=== PATIENT | male | born 1935 | race Caucasian/White ===

== ENCOUNTER 2018-08-06 17:03 | Outpatient (CLI) | payer OTHER, MEDICARE | END 2018-08-06 17:04 | disposition critical access hospital (66) | LOC: EMS 17:03 | PROVIDERS: ATTEND Surgery | DX: M54.2 Cervicalgia (principal); V47.0XXA Car driver injured in collision with fixed or stationary object in nontraffic accident, initial encounter; Y92.481 Parking lot as the place of occurrence of the external cause | CPT/HCPCS: A0425; A0429 ==

== ENCOUNTER 2018-08-06 17:27 | Emergency (ER) | payer OTHER, MEDICARE ==
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
[2018-08-06] MEDS ORDERED: ACETAMINOPHEN 325 MG TABLET PO STA (17:49)
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
[2018-08-06 19:35] VITALS: BP 134/99
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
== END 2018-08-06 19:57 | disposition home or self-care (01) ==
LOC: EDUNIT# → ED 17:27
DX: S80.02XA Contusion of left knee, initial encounter (principal); S00.83XA Contusion of other part of head, initial encounter; V47.1XXA Car passenger injured in collision with fixed or stationary object in nontraffic accident, initial encounter; W22.12XA Striking against or struck by front passenger side automobile airbag, initial encounter; Y92.481 Parking lot as the place of occurrence of the external cause
CPT/HCPCS: 70450; 72125; 73562; 99283; 99285; A9270

== ENCOUNTER 2019-10-11 09:42 | Outpatient (CLI) | payer MEDICARE, OTHER ==
[2019-10-11 10:29] LABS: BILIRUBIN,URINE NEGATIVE (NEGATIVE); GLUCOSE, URINE (UA) NEGATIVE (NEGATIVE); KETONES,URINE (UA) NEGATIVE (NEGATIVE); LEUKOCYTE ESTERASE, URINE LARGE (NEGATIVE); NITRITE,URINE NEGATIVE (NEGATIVE); OCCULT BLOOD,URINE SMALL (NEGATIVE); PROTEIN,URINE TRACE mg/dL (NEGATIVE); UROBILINOGEN,URINE 0.2 (NORMAL) E.U./dL (NORMAL)
[2019-10-11 10:31] LABS: CLARITY,URINE CLOUDY (CLEAR)
[2019-10-11 10:56] LABS: SQUAMOUS EPITHELIAL CELL,UR FEW Squamous (<= Few); WBC CLUMPS,URINE PRESENT
[2019-10-11 10:57] LABS: AMORPHOUS SEDIMENT,UR Few /LPF; BACTERIA,URINE Few /HPF (None Seen)
== END 2019-10-11 09:43 | disposition home or self-care (01) ==
LOC: LAB 09:42
PROVIDERS: ATTEND Internal Medicine
DX: R35.0 Frequency of micturition (principal); R30.0 Dysuria
CPT/HCPCS: 81001

== ENCOUNTER 2019-11-06 11:01 | Emergency (ER) | payer MEDICARE, OTHER ==
--- NOTE | 2019-11-06 12:32 | ED Physician Documentation ---
PD HPI ABD PAIN - Stated complaint Stated Complaint: MALE - Chief complaint Chief Complaint: Abd Pain - History obtained from History obtained from: Patient - History of Present Illness Timing - onset: Other (Has not had a bowel movement in about 2 days, this is a recurrent issue for him. No abdominal pain or vomiting, just rectal pressure.) Review of Systems Constitutional: denies: Fever, Chills Cardiac: denies: Chest pain / pressure, Palpitations Respiratory: denies: Dyspnea, Cough PD PAST MEDICAL HISTORY - Past Medical History Past Medical History: Yes Cardiovascular: High cholesterol Respiratory: None Endocrine/Autoimmune: None GI: Chronic constipation : Benign prostate hypertrophy Musculoskeletal: None Derm: None - Past Surgical History Past Surgical History: Yes General: Appendectomy Ortho: Knee replacement, Other - Present Medications Home Medications: Ambulatory Orders Medication Instructions Recorded Confirmed Alfuzosin HCl [Uroxatral] 10 mg PO DAILY 07/28/15 11/06/19 Docusate Sodium 100Mg Capsule 100 mg PO BID #30 capsule 07/28/15 11/06/19 [Colace] Simvastatin 20 mg PO DAILY 08/06/18 11/06/19 - Allergies Allergies/Adverse Reactions: Allergies Allergy/AdvReac Type Severity Reaction Status Date / Time No Known Drug Allergies Allergy Verified 11/06/19 11:10 - Social History Does the pt smoke?: No Smoking Status: Former smoker Does the pt drink ETOH?: No Does the pt have substance abuse?: No - Immunizations Immunizations are current?: Yes - POLST Patient has POLST: No PD ED PE NORMAL - Vitals Vital signs reviewed: Yes - General General: Alert and oriented X 3, No acute distress - Abdomen Abdomen: Normal bowel sounds, Soft, Non tender - Rectal Rectal: Other (There is a large firm fecal impaction that was partially disimpacted during exam and then a enema was placed.) - Extremities Extremities: No edema, No calf tenderness / cord - Neuro Neuro: Alert and oriented X 3, Normal speech Results - Vitals Vitals: Vital Signs - 24 hr 11/06/19 11/06/19 11:07 11:29 Temperature 36.6 C 36.9 C Heart Rate 75 54 L Respiratory 17 16 Rate Blood Pressure 173/64 H 179/93 H O2 Saturation 96 98 Oxygen O2 Source Room air PD MEDICAL DECISION MAKING - ED course ED course: 84-year-old gentleman presents with symptomatic fecal impaction. Using a combination of several enemas and digital disimpaction we were able to clear it and he felt much better. Departure - Departure Disposition: 01 Home, Self Care Clinical Impression: Fecal impaction Condition: Good Record reviewed to determine appropriate education?: Yes Instructions: ED Impaction Fecal Treated Comments: Call your doctor to arrange a follow-up appointment, make the next available appointment. In the interim, return anytime if worse or if new symptoms develop. Your blood pressure was elevated today on check into the emergency department. This does not mean that you have hypertension, it is a common phenomenon to come to the emergency department and have elevated blood pressure. I recommend that you see your primary care physician within the week to have it rechecked when you are feeling better.
[2019-11-06] MEDS ORDERED: MAGNESIUM CITRATE 296 ML BOTTLE PO STA (13:34)
[2019-11-06 13:45] VITALS: BP 170/82
== END 2019-11-06 13:45 | disposition home or self-care (01) ==
LOC: ED 11:01
DX: K56.41 Fecal impaction (principal); R03.0 Elevated blood-pressure reading, without diagnosis of hypertension; Z87.891 Personal history of nicotine dependence
CPT/HCPCS: 99282; 99283; A9270

== ENCOUNTER 2020-06-17 15:21 | Outpatient (CLI) | payer MEDICARE, OTHER | END 2020-06-17 15:22 | disposition critical access hospital (66) | LOC: EMS 15:21 | PROVIDERS: ATTEND Surgery | DX: M54.9 Dorsalgia, unspecified (principal); W17.89XA Other fall from one level to another, initial encounter; Y92.009 Unspecified place in unspecified non-institutional (private) residence as the place of occurrence of the external cause | CPT/HCPCS: A0425; A0429 ==

== ENCOUNTER 2020-06-17 16:54 | Emergency (ER) | payer MEDICARE, OTHER ==
[2020-06-17] MEDS ORDERED: HYDROcod/ACETAM 5/325 MG TABLET PO STA ×2 (17:02→18:01)
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
--- NOTE | 2020-06-17 18:02 | CT Report ---
PROCEDURE: THORACIC SPINE WO INDICATIONS: back injury TECHNIQUE: Noncontrast 3 mm thick sections acquired through the region of interest in the thoracic spine. Sagit caryn and coronal reformats were then constructed. For radiation dose reduction, the following was used : automated exposure control, adjustment of mA and/or kV according to patient size. COMPARISON: None. FINDINGS: Image quality: Excellent. Bones: There is diffuse demineralization. Flowing, bridging anterior osteophytes are present through out the thoracic spine and there is partial ankylosis of the spinous processes posteriorly. There is an oblique coronal fracture through the T9 vertebral body involving superior and inferior en dplates but without retropulsion of any fragments posteriorly into the central canal. No significant vertebral body height loss. The flowing osteophyte between T9 and T10 is fractured. Questionable irre gularity of the right T9 pedicle. No visible displaced posterior element fracture. No other acute fractures. No suspicious sclerotic or lytic bony lesions. Central spinal canal is of normal overall caliber. Soft tissues: Very mild soft tissue thickening around the anterior aspect of the T9 and T10 vertebra l bodies. No paravertebral masses or hematomas. Moderate mitral annular and mild coronary artery jaison cification. Visualized posteromedial lungs demonstrate minor micronodularity throughout the right giuliano g posteriorly of uncertain etiology. No consolidation or effusion. IMPRESSION: 1. Oblique coronal T9 vertebral body fracture without definite involvement of the posterior column or definite involvement of posterior elements. 2. Morphology of diffuse idiopathic skeletal hypertrophy, less likely ankylosing spondylitis with fra cture of the bridging anterior osteophyte at the T9-10 level. 3. Micronodular pulmonary parenchymal pattern in the right lower lobe posteriorly. This may reflect a spiration pneumonitis or other infectious/inflammatory process. Reviewed by: Tabby Cannon MD on 06/17/2020 6:01 PM PDT Approved by: Tabby Cannon MD on 06/17/2020 6:01 PM PDT Station ID: [id number]
--- NOTE | 2020-06-17 18:13 | CT Report ---
PROCEDURE: LUMBAR SPINE WO INDICATIONS: back injury TECHNIQUE: Noncontrast 3 mm thick sections acquired from the T12 level to the sacrum. Sagittal and coronal refo rmats were constructed. For radiation dose reduction, the following was used: automated exposure co ntrol, adjustment of mA and/or kV according to patient size. COMPARISON: None. FINDINGS: Image quality: Excellent. Bones: There is normal bony alignment. No acute vertebral body compression fractures. No suspiciou s lytic or blastic bony lesions. There are laminectomy changes from the L2-3 through L4-5 levels. Ce ntral spinal caliber is of normal overall caliber. No pars defects. T12-L1: Mild disc height loss and disc osteophyte complex. Anterior spurring. L1-L2: Severe disc height loss, vacuum phenomenon, endplate sclerosis, subcortical cystic changes, and prominent spurring. Facet spurring. Severe central canal and bilateral foraminal stenosis. L2-L3: Moderately severe disc height loss. Circumferential disc osteophyte, facet arthropathy, and posterior disc bulge resulting in moderate to severe bilateral foraminal stenosis and central canal stenosis. L3-L4: Prominent circumferential disc osteophyte. Moderate facet arthropathy. Mild to moderate bila teral foraminal narrowing and central canal narrowing. L4-L5: Severe disc height loss, prominent circumferential endplate spurring, sclerosis, and subcort ical cystic change. Severe facet arthropathy. Severe left and moderate to severe right foraminal narr owing. . L5-S1: Moderate to severe disc degeneration with vacuum phenomenon. Moderate facet arthropathy. Fac et spurring and mild to moderate central canal narrowing bilaterally. Soft tissues: No retroperitoneal masses or hematomas. Mild, chronic appearing left hydronephrosis an d prominence of the extrarenal pelvis. Mild Hydroureter bilaterally. The distal ureters were not imag ed. Visualized aorta is normal in caliber. IMPRESSION: 1. No definite vertebral body fractures. 2. Decompressive laminectomy changes from L2-3 through L4-5. 3. Severe disc height loss and degenerative changes at multiple levels. 4. Mild bilateral hydroureter and mild left hydronephrosis. This may be physiologic if there is a dis tended urinary bladder or bladder outlet obstruction. Correlate clinically. Reviewed by: Tabby Cannon MD on 06/17/2020 6:12 PM PDT Approved by: Tabby Cannon MD on 06/17/2020 6:12 PM PDT Station ID: [id number]
[2020-06-17 19:01] VITALS: BP 177/73
== END 2020-06-17 19:35 | disposition home or self-care (01) ==
LOC: EDUNIT# → ED 16:54
DX: S22.078A Other fracture of T9-T10 vertebra, initial encounter for closed fracture (principal); W19.XXXA Unspecified fall, initial encounter
CPT/HCPCS: 12004; 72128; 72131; 99284; A9270

== ENCOUNTER 2021-12-13 14:53 | Emergency (ER) | payer MEDICARE, OTHER ==
[2021-12-13 15:04] VITALS: BP 126/51
--- NOTE | 2021-12-13 15:16 | ED Physician Documentation ---
History of Present Illness - Stated complaint Stated Complaint: MALE - Chief complaint Chief Complaint: Abd Pain - Additonal information Additional information: 86-year-old male who has a history of fairly advanced dementia presents to the emergency department for concerns that his Patel catheter is not functioning normally. A Patel was placed 2 days ago through urology at the [facility]. He is scheduled for a prostate surgery on the at [facility]. He is currently on finasteride. His and caregiver reports that over the last 24 hours the Patel itself has put out very little urine but his bedding and his diaper has been saturated with urine. There have been no fevers. No complaints of abdominal pain or discomfort with the Patel itself. Review of Systems Unable to obtain: Dementia, Other (History obtained from ) Constitutional: denies: Fever, Chills Eyes: reports: Reviewed and negative Cardiac: reports: Reviewed and negative Respiratory: reports: Reviewed and negative GI: reports: Abdominal Pain : reports: Unable to Void (Patel in place) Skin: reports: Reviewed and negative Musculoskeletal: reports: Reviewed and negative Neurologic: reports: Reviewed and negative Psychiatric: reports: Reviewed and negative PD PAST MEDICAL HISTORY - Past Medical History Cardiovascular: High cholesterol Respiratory: None Endocrine/Autoimmune: None GI: Chronic constipation : Benign prostate hypertrophy Musculoskeletal: None Derm: None - Past Surgical History Past Surgical History: Yes General: Appendectomy Ortho: Knee replacement, Other - Present Medications Home Medications: Ambulatory Orders Medication Instructions Recorded Confirmed Alfuzosin HCl [Uroxatral] 10 mg PO DAILY 07/28/15 11/06/19 Docusate Sodium 100Mg Capsule 100 mg PO BID #30 capsule 07/28/15 11/06/19 [Colace] Simvastatin 20 mg PO DAILY 08/06/18 11/06/19 Alfuzosin HCl [Alfuzosin HCl ER] 10 mg PO 11/11/19 Cholecalciferol (Vitamin D3) 2,000 unit PO 11/11/19 [Vitamin D3] Docusate Calcium 240 mg PO 11/11/19 Donepezil [Aricept] 5 mg PO DAILY 11/11/19 11/11/19 Propranolol [Inderal] 10 mg PO BID 11/11/19 11/11/19 Sertraline [Zoloft] 25 mg PO DAILY 02/07/20 02/07/20 Tamsulosin [Flomax] 0.4 mg PO ONCE 11/11/19 11/11/19 polyethylene glycoL 3350 [Miralax] 17 gm PO DAILY 11/11/19 11/11/19 Hydrocodone/Acetaminophen 1 - 2 tab PO Q6H PRN #15 tablet 06/17/20 [Hydrocodone-Acetamin 5-325 mg] - Allergies Allergies/Adverse Reactions: Allergies Allergy/AdvReac Type Severity Reaction Status Date / Time No Known Drug Allergies Allergy Verified 12/13/21 15:04 - Social History Does the pt smoke?: No Smoking Status: Never smoker Does the pt drink ETOH?: No Does the pt have substance abuse?: No - Immunizations Immunizations are current?: Yes - POLST Patient has POLST: No PD ED PE EXPANDED - General General: Alert, No acute distress, Well developed/nourished - Cardiac Cardiac: Regular Rate, Pedal strong equal, Cap refill < 2 sec. No: Murmur Present - Respiratory Respiratory: Clear to ausultation ailyn. No: Distress, Labored - Abdomen Abdomen: Normal Bowel sounds. No: Tender to palpation - Male Male : Other (Patel catheter seen exiting the penis. Urine is draining around the catheter. Patel bag with small amount of yellow urine with sediment in it.) - Neuro Neuro: CNII-XII intact, Other (Dementia at baseline but no acute focal neuro deficits.) - GCS Eye Opening: Spontaneous Motor: Obeys Commands Verbal: Confused Total: 14 Results - Vitals Vitals: Vital Signs - 24 hr 12/13/21 15:01 Temperature 36.7 C Heart Rate 72 Respiratory 18 Rate Blood Pressure 126/51 L O2 Saturation 98 Oxygen O2 Source Room air PD MEDICAL DECISION MAKING - ED course Complexity details: reviewed results, re-evaluated patient, d/w patient ED course: 86-year-old male presents emergency department for evaluation of Patel catheter malfunction. It was placed 2 days ago at the [facility] secondary to obstruction. He has a planned prostate operation on 20 December. reports that he is saturating his diaper and his bedding but very little is coming through the Patel. We did do a bladder scan here in the emergency department and found that there was only 50 mL of residual urine. The balloon was checked and noted to be fully inflated with 10 cc of saline. Patient has no abdominal discomfort elicited on exam. He does have a coud catheter in place. I did discuss this ED visit with his urologist Dr. Flores through the [facility]. He feels that we should reobtain the current catheter without exchange. He feels that bladder spasms are likely causing the Patel dysfunction. He would not recommend bladder spasm medication as he feels that it will interfere with her ability to properly operate on the prostate next week. Therefore this plan and finding was discussed with the patient and his given that the patient is not obstructed he will be discharged home. Emergent return precautions were discussed for fevers failure of any urine either in the diaper or Patel for 12 more hours or significant abdominal pain. Departure - Departure Disposition: Home, Self Care Clinical Impression: Patel catheter problem Qualifiers: Encounter type: initial encounter Qualified Code(s): T83.9XXA - Unspecified complication of genitourinary prosthetic device, implant and graft, initial encounter Condition: Stable Record reviewed to determine appropriate education?: Yes Follow-Up: AMY FLORES [Physician No Access] - Comments: Mo was seen today for failure of his Patel catheter adequately drained. We did check the residual volume of urine in his bladder and there was only 50 mL. We also checked the Patel itself and find that the balloon is intact. I did discuss his case with Dr. Flores his urologist. He suspects that bladder spasm are causing urine to be ejected around the catheter and this typically subsides over a few days. Continue to follow-up with urology at the [facility]. If you find that he is not having any urine output by any means either his diaper or the Patel for 12 or more hours, he develops fevers or has abdominal pain then please return immediately to the ER for a second evaluation.
== END 2021-12-13 16:35 | disposition home or self-care (01) ==
LOC: ED 14:53
DX: T83.9XXA Unspecified complication of genitourinary prosthetic device, implant and graft, initial encounter (principal); F03.90 Unspecified dementia, unspecified severity, without behavioral disturbance, psychotic disturbance, mood disturbance, and anxiety
CPT/HCPCS: 51798; 99281; 99282

== ENCOUNTER 2021-12-15 11:40 | Outpatient (CLI) | payer MEDICARE, OTHER | END 2021-12-15 11:41 | disposition critical access hospital (66) | LOC: EMS 11:40 | DX: M54.50 Low back pain, unspecified (principal); R50.9 Fever, unspecified; Z96.0 Presence of urogenital implants | CPT/HCPCS: A0425; A0429 ==

== ENCOUNTER 2021-12-15 12:09 | Emergency (ER) | payer MEDICARE, OTHER ==
--- NOTE | 2021-12-15 12:43 | ED Physician Documentation ---
PD HPI ABD PAIN - Stated complaint Stated Complaint: LOW BACK PX - Chief complaint Chief Complaint: Abd Pain - History obtained from History obtained from: Patient - History of Present Illness Timing - onset: How many days ago (few) Timing - duration: Days (few) Timing - details: Gradual onset, Still present, Waxing and waning Quality: Cramping, Aching, Pain (lower back midline) Location: Suprapubic Radiation: Lower back. No: Left flank, Right flank Improved by: No: Eating Worsened by: Moving. No: Eating Associated symptoms: Other (has alcantara catheter in recently changed and was concerned about it not working, seen 2 days ago here in ER and alcantara appeared to be draining. Considered bladder spasms. No meds changed. Has alcantara draining well since but low back pain now.). No: Fever, Nausea, Vomiting, Hematuria Recently seen: Clinic (had UA from 5 days ago in Urology clinic with alcantara placed and culture showing E.Coli without sensitivities yet reported on his MyChart results pulled up by his on her phone.), Emergency Dept Review of Systems Constitutional: denies: Fever, Chills Nose: denies: Rhinorrhea / runny nose, Congestion Throat: denies: Sore throat Respiratory: denies: Cough GI: reports: Abdominal Pain (bladder area), Constipation. denies: Nausea, Vomiting Neurologic: denies: Generalized weakness, Altered mental status PD PAST MEDICAL HISTORY - Past Medical History Cardiovascular: High cholesterol Respiratory: None Endocrine/Autoimmune: None GI: Chronic constipation : Benign prostate hypertrophy Musculoskeletal: None Derm: None - Past Surgical History Past Surgical History: Yes General: Appendectomy Ortho: Knee replacement, Other - Present Medications Home Medications: Ambulatory Orders Medication Instructions Recorded Confirmed Alfuzosin HCl [Uroxatral] 10 mg PO DAILY 07/28/15 11/06/19 Docusate Sodium 100Mg Capsule 100 mg PO BID #30 capsule 07/28/15 11/06/19 [Colace] Simvastatin 20 mg PO DAILY 08/06/18 11/06/19 Alfuzosin HCl [Alfuzosin HCl ER] 10 mg PO 11/11/19 Cholecalciferol (Vitamin D3) 2,000 unit PO 11/11/19 [Vitamin D3] Docusate Calcium 240 mg PO 11/11/19 Donepezil [Aricept] 5 mg PO DAILY 11/11/19 11/11/19 Propranolol [Inderal] 10 mg PO BID 11/11/19 11/11/19 Sertraline [Zoloft] 25 mg PO DAILY 11/11/19 11/11/19 Tamsulosin [Flomax] 0.4 mg PO ONCE 11/11/19 11/11/19 polyethylene glycoL 3350 [Miralax] 17 gm PO DAILY 11/11/19 11/11/19 Hydrocodone/Acetaminophen 1 - 2 tab PO Q6H PRN #15 tablet 06/17/20 [Hydrocodone-Acetamin 5-325 mg] Acetaminophen [Acetaminophen Extra 500 mg PO QID PRN #50 tablet 12/15/21 Strength] cephALEXin [Keflex] 500 mg PO QID 5 Days #20 cap 12/15/21 - Allergies Allergies/Adverse Reactions: Allergies Allergy/AdvReac Type Severity Reaction Status Date / Time No Known Drug Allergies Allergy Verified 12/15/21 12:18 - Social History Does the pt smoke?: No Smoking Status: Never smoker Does the pt drink ETOH?: No Does the pt have substance abuse?: No - Immunizations Immunizations are current?: Yes - POLST Patient has POLST: No PD ED PE NORMAL - Vitals Vital signs reviewed: Yes - General General: Alert and oriented X 3, No acute distress, Well developed/nourished - Cardiac Cardiac: RRR, No murmur - Respiratory Respiratory: No respiratory distress, Clear bilaterally - Abdomen Abdomen: Normal bowel sounds, Soft, Non distended, No organomegaly, Other (mild tender suprapubic without distension. Bladder scanner showing minimal residual, and alcantara bag is full. ) - Male Male : Other (alcantara in place. No infection/drainage at meatus. ) - Back Back: No CVA TTP, Other (tender lower lumbar midline area to percussion, not to palpation. ) - Derm Derm: Normal color, Warm and dry, No rash - Extremities Extremities: No edema, No calf tenderness / cord - Neuro Neuro: Alert and oriented X 3, No motor deficit, Normal speech Results - Vitals Vitals: Vital Signs - 24 hr 12/15/21 12/15/21 12/15/21 12:18 13:56 15:02 Temperature 37.6 C Heart Rate 72 63 60 Respiratory 16 18 18 Rate Blood Pressure 166/65 H 160/64 H 149/65 H O2 Saturation 98 97 97 Oxygen O2 Source Room air - Labs Labs: Laboratory Tests 12/15/21 12/15/21 12/15/21 13:15 13:15 14:10 WBC 15.3 H RBC 3.25 L Hgb 9.8 L Hct 29.2 L MCV 89.8 MCH 30.2 MCHC 33.6 RDW 13.2 Plt Count 257 MPV 8.6 Neut # (Auto) 11.6 H Lymph # (Auto) 1.0 L Eddy # (Auto) 2.7 H Eos # (Auto) 0.0 Baso # (Auto) 0.1 Absolute Nucleated RBC 0.00 Nucleated RBC % 0.0 Manual Slide Review Indicated WBC Morphology Platelet Estimate NORMAL (130-450,000) Platelet Morphology NORMAL APPEARANCE RBC Morph Micro Appear NORMAL APPEARANCE Sodium 132 L Potassium 3.8 Chloride 102 Carbon Dioxide 22 Anion Gap 8.0 BUN 23 H Creatinine 1.4 H Estimated GFR (MDRD) 48 L Glucose 151 H Calcium 8.6 Total Bilirubin 0.6 AST 20 ALT 16 Alkaline Phosphatase 52 Total Protein 6.1 L Albumin 3.6 Globulin 2.5 Albumin/Globulin Ratio 1.4 Lipase 24 Urine Color YELLOW Urine Clarity CLOUDY Urine pH 6.0 Ur Specific [place] 1.020 Urine Protein 30 H Urine Glucose (UA) NEGATIVE Urine Ketones NEGATIVE Urine Occult Blood LARGE H Urine Nitrite POSITIVE H Urine Bilirubin NEGATIVE Urine Urobilinogen 0.2 (NORMAL) Ur Leukocyte Esterase MODERATE H Urine RBC 11-25 H Urine WBC >25 H Ur Squamous Epith Cells MANY Squamous H Urine Bacteria Moderate H Ur Microscopic Review INDICATED Urine Culture Comments NOT INDICATED - Rads (name of study) lumbar CT Radiology: Prelim report reviewed, Discussed with rads (stranding both ureters and some hydroureter. COnsider bladder outflow issue. consider infection. ), See rad report PD MEDICAL DECISION MAKING - ED course Complexity details: reviewed results (lumbar CT showing stranding both ureters. could be c/w infection and UA does show infection. ), considered differential ( having recent discomfort with alcantara/spasms, and now some flank pain bilaterally. NO fever. Consider alcantara dysfunction, UTI, other process. Pain in spine area so also consider compression fx/etc. ), d/w patient, d/w family Departure - Departure Disposition: 01 Home, Self Care Clinical Impression: Alcantara catheter in place UTI (urinary tract infection) Qualifiers: Urinary tract infection type: catheter-associated UTI Indwelling urinary cathet er type: indwelling urethral catheter Encounter type: initial encounter Qualified Code(s): T83.511A - Infection and inflammatory reaction due to indwelling urethral catheter, initial encounter Low back pain Qualifiers: Chronicity: acute Back pain laterality: midline Sciatica presence: without sciatica Qualified Code(s): M54.50 - Low back pain, unspecified Condition: Stable Follow-Up: AMY RYAN [Physician No Access] - Prescriptions: Acetaminophen [Acetaminophen Extra Strength] 500 mg PO QID PRN #50 tablet PRN Reason: Pain cephALEXin [Keflex] 500 mg PO QID 5 Days #20 cap Comments: The Alcantara catheter appears to be working appropriately. There is signs of a urinary infection and this may be accounting for some of your back pain. Your CT scan shows some arthritis in the spine but no acute obvious fractures or other bony problems. There is some inflammation noted in the ureters and kidneys consistent with the infection. Cephalexin 4 times a day for the next 5 days. Use Tylenol 4 times a day for pains. Stay well-hydrated. Continue your other medications. Follow-up with your urologist over the next couple of days, call to update on the findings. I would assume they will still do your prostate surgery on Thursday. I sent your prescriptions to [facility] in [place]. Discharge Date/Time: 12/15/21 15:46
[2021-12-15] MEDS ORDERED: ACETAMINOPHEN 325 MG TABLET PO STA (13:05)
[2021-12-15 13:19] LABS: BASOPHILS # (AUTO) 0.1 10^3/uL (0.0-0.1); BASOPHILS % (AUTO) 0.4 %; EOSINOPHILS % (AUTO) 0.1 %; HCT - HEMATOCRIT 29.2 % (42.0-52.0); HGB - HEMOGLOBIN 9.8 g/dL (14.0-18.0); LYMPHOCYTES % (AUTO) 6.3 %; MEAN CORPUSCULAR HEMOGLOBIN 30.2 pg (27.0-31.0); MEAN CORPUSCULAR HGB CONC 33.6 g/dL (32.0-36.0); MEAN CORPUSCULAR VOLUME 89.8 fL (80.0-94.0); MEAN PLATELET VOLUME 8.6 fL (7.4-11.4); MONOCYTES # (AUTO) 2.7 10^3/uL (0.0-1.0); MONOCYTES % (AUTO) 17.3 %; NEUTROPHILS # (AUTO) 11.6 10^3/uL (1.5-6.6); NEUTROPHILS % (AUTO) 75.5 %; PLT - PLATELET COUNT 257 10^3/uL (130-450); RED BLOOD COUNT 3.25 10^6/uL (4.70-6.10); RED CELL DISTRIBUTION WIDTH 13.2 % (12.0-15.0); WHITE BLOOD COUNT 15.3 x10^3/uL (4.8-10.8)
[2021-12-15 13:32] LABS: ALBUMIN 3.6 g/dL (3.2-5.5); ALBUMIN/GLOBULIN RATIO 1.4 (1.0-2.2); BILIRUBIN,TOTAL 0.6 mg/dL (0.2-1.0); CALCIUM 8.6 mg/dL (8.5-10.3); CREATININE 1.4 mg/dL (0.6-1.2); POTASSIUM 3.8 mmol/L (3.5-5.0); TOTAL PROTEIN 6.1 g/dL (6.7-8.2)
[2021-12-15 13:33] LABS: SLIDE REVIEW? Indicated
[2021-12-15 13:49] LABS: PLATELET ESTIMATE, MANUAL NORMAL (130-450,000) (NORMAL); PLATELET MORPHOLOGY NORMAL APPEARANCE (NORMAL); RBC MORPHOLOGY (MULTIPLE) NORMAL APPEARANCE (NORMAL)
--- NOTE | 2021-12-15 14:13 | CT Report ---
PROCEDURE: LUMBAR SPINE WO INDICATIONS: low back pain past few days TECHNIQUE: Noncontrast 3 mm thick sections acquired from the T12 level to the sacrum. Sagittal and coronal refo rmats were constructed. For radiation dose reduction, the following was used: automated exposure co ntrol, adjustment of mA and/or kV according to patient size. COMPARISON: CT lumbar spine 06/17/2020. FINDINGS: Image quality: Excellent. Bones: No significant scoliosis. No acute vertebral body compression fractures. There is multilevel intervertebral disc space height loss. Overall this appears similar to 2020. There are large vertebra l body osteophytes. There is a broad-based disc bulge at L2-L3 and L3-L4 which also appears similar. L2-L5 laminectomy. No suspicious lytic or blastic bony lesions. Central spinal caliber is of normal overall caliber. No pars defects. Soft tissues: Bibasilar atelectasis. No retroperitoneal masses or hematomas. Visualized aorta is nor mal in caliber. Moderate plaque. Right greater than left hydroureter. There is stranding surrounding both ureters. There is mild right hydronephrosis appreciated. Mild caliectasis of the left kidney. T he bladder is outside the field of view. A Patel catheter is seen. IMPRESSION: 1. No compression fracture. Severe multilevel DDD. Prior laminectomies. 2. Stranding surrounding the visualized portions of the ureters. There is bilateral hydroureter. Susp ect mild right hydronephrosis. Findings could be due to upper urinary tract infection. The bladder is outside the field of view and a distal kidney stone cannot be excluded. Patel catheter is in place. Results were communicated to Dr. Vidal Corona at 12/15/2021 1:12 PM AKJOSLYN. Reviewed by: Edison Sutton MD on 12/15/2021 1:12 PM AKDT Approved by: Edison Sutton MD on 12/15/2021 1:12 PM AKDT Station ID: [id number]
[2021-12-15 14:21] LABS: BILIRUBIN,URINE NEGATIVE (NEGATIVE); GLUCOSE, URINE (UA) NEGATIVE (NEGATIVE); KETONES,URINE (UA) NEGATIVE (NEGATIVE); LEUKOCYTE ESTERASE, URINE MODERATE (NEGATIVE); NITRITE,URINE POSITIVE (NEGATIVE); OCCULT BLOOD,URINE LARGE (NEGATIVE); PROTEIN,URINE 30 mg/dL (NEGATIVE); UROBILINOGEN,URINE 0.2 (NORMAL) E.U./dL (NORMAL)
[2021-12-15 14:22] LABS: CLARITY,URINE CLOUDY (CLEAR)
[2021-12-15] MEDS ORDERED: cefTRIAXone 1 GM VIAL IVP STA (14:27)
[2021-12-15 14:34] LABS: SQUAMOUS EPITHELIAL CELL,UR MANY Squamous (<= Few); WBC,URINE >25 /HPF (0-3)
[2021-12-15 14:35] LABS: BACTERIA,URINE Moderate /HPF (None Seen)
[2021-12-15 15:02] VITALS: BP 149/65
== END 2021-12-15 15:46 | disposition home or self-care (01) ==
LOC: EDUNIT# → ED 12:09
DX: T83.511A Infection and inflammatory reaction due to indwelling urethral catheter, initial encounter (principal); M54.50 Low back pain, unspecified
CPT/HCPCS: 36415; 51798; 72131; 80053; 81001; 83690; 85025; 96374; 99282; 99284; A9270; 81003; 87086

== ENCOUNTER 2022-08-05 19:43 | Outpatient (CLI) | payer MEDICARE, OTHER | END 2022-08-05 19:44 | disposition critical access hospital (66) | LOC: EMS 19:43 | DX: R53.1 Weakness (principal); R32 Unspecified urinary incontinence; R35.0 Frequency of micturition; R50.9 Fever, unspecified | CPT/HCPCS: A0425; A0429 ==

== ENCOUNTER 2022-08-05 20:09 | Inpatient (IN) | payer MEDICARE, OTHER ==
[2022-08-05 21:22] LABS: BASOPHILS # (AUTO) 0.1 10^3/uL (0.0-0.1); BASOPHILS % (AUTO) 0.3 %; EOSINOPHILS # (AUTO) 0.1 10^3/uL (0.0-0.7); EOSINOPHILS % (AUTO) 0.5 %; HCT - HEMATOCRIT 28.3 % (42.0-52.0); LYMPHOCYTES # (AUTO) 0.5 10^3/uL (1.5-3.5); MEAN CORPUSCULAR HEMOGLOBIN 29.3 pg (27.0-31.0); MEAN CORPUSCULAR HGB CONC 31.8 g/dL (32.0-36.0); MEAN CORPUSCULAR VOLUME 92.2 fL (80.0-94.0); MEAN PLATELET VOLUME 8.4 fL (7.4-11.4); MONOCYTES # (AUTO) 0.7 10^3/uL (0.0-1.0); MONOCYTES % (AUTO) 4.3 %; NEUTROPHILS # (AUTO) 15.4 10^3/uL (1.5-6.6); NEUTROPHILS % (AUTO) 89.3 %; PLT - PLATELET COUNT 352 10^3/uL (130-450); RED BLOOD COUNT 3.07 10^6/uL (4.70-6.10); WHITE BLOOD COUNT 17.3 x10^3/uL (4.8-10.8)
[2022-08-05 21:36] LABS: ALBUMIN 3.5 g/dL (3.2-5.5); ALBUMIN/GLOBULIN RATIO 1.3 (1.0-2.2); BILIRUBIN,TOTAL 0.3 mg/dL (0.2-1.0); CALCIUM 8.9 mg/dL (8.5-10.3); POTASSIUM 4.3 mmol/L (3.5-5.0); TOTAL PROTEIN 6.3 g/dL (6.7-8.2)
[2022-08-05 23:11] LABS: BILIRUBIN,URINE NEGATIVE (NEGATIVE); CLARITY,URINE CLOUDY (CLEAR); GLUCOSE, URINE (UA) NEGATIVE (NEGATIVE); KETONES,URINE (UA) NEGATIVE (NEGATIVE); LEUKOCYTE ESTERASE, URINE LARGE (NEGATIVE); NITRITE,URINE NEGATIVE (NEGATIVE); OCCULT BLOOD,URINE LARGE (NEGATIVE); PROTEIN,URINE 100 mg/dL (NEGATIVE); UROBILINOGEN,URINE 0.2 (NORMAL) E.U./dL (NORMAL)
--- NOTE | 2022-08-05 23:13 | XRAY Report ---
PROCEDURE: Chest 1 View X-Ray INDICATIONS: Chest Pain TECHNIQUE: One view of the chest was acquired. COMPARISON: None. FINDINGS: Surgical changes and devices: None. Lungs and pleura: No pleural effusions or pneumothorax. Lungs are clear. Mediastinum: Mediastinal contours appear normal. Heart size is normal. Bones and chest wall: No suspicious bony lesions. Overlying soft tissues appear unremarkable. IMPRESSION: 1. No acute cardiopulmonary disease. Reviewed by: Syd Rai MD on 08/05/2022 11:11 PM PDT Approved by: Syd Rai MD on 08/05/2022 11:11 PM PDT Station ID: [id number]
[2022-08-05 23:23] LABS: SQUAMOUS EPITHELIAL CELL,UR RARE Squamous (<= Few); WBC,URINE >25 /HPF (0-3)
[2022-08-05 23:24] LABS: BACTERIA,URINE Many /HPF (None Seen)
[2022-08-06] MEDS ORDERED: cefTRIAXone 1 GM in SODIUM CHLORIDE 0.9% MINIBAG 100 ML IV STA (00:49)
--- NOTE | 2022-08-06 00:53 | ED Physician Documentation ---
History of Present Illness - Stated complaint Stated Complaint: WEAKNESS - Chief complaint Chief Complaint: General - History obtained from History obtained from: Family () - Additonal information Additional information: 87-year-old man with past medical history of baseline dementia, chronic indwelling Alcantara catheter secondary to BPH c/by multiple uti's, status post urologic intervention with Dr. Flores ([facility]) in December 2021, now alcantara- free, p/w report by his /caregiver of weakness, confusion/AMS, increased dyspnea over the past couple days. patient also c/o intermittent BL midback pain radiating to the front. denies dysuria or bel hematuria. endorses subjective fevers. Review of Systems Ten Systems: 10 systems reviewed and negative Constitutional: reports: Fever, Chills, Fatigue Musculoskeletal: reports: Back pain Neurologic: reports: Generalized weakness, Confused PD PAST MEDICAL HISTORY - Past Medical History Past Medical History: Yes Cardiovascular: High cholesterol Respiratory: None Neuro: Dementia Endocrine/Autoimmune: None GI: Chronic constipation : Benign prostate hypertrophy HEENT: None Psych: None Musculoskeletal: None Derm: None - Past Surgical History Past Surgical History: Yes General: Appendectomy Ortho: Knee replacement, Other - Present Medications Home Medications: Ambulatory Orders Medication Instructions Recorded Confirmed Alfuzosin HCl [Uroxatral] 10 mg PO DAILY 07/28/15 11/06/19 Docusate Sodium 100Mg Capsule 100 mg PO BID #30 capsule 07/28/15 11/06/19 [Colace] Simvastatin 20 mg PO DAILY 08/06/18 11/06/19 Alfuzosin HCl [Alfuzosin HCl ER] 10 mg PO 11/11/19 Cholecalciferol (Vitamin D3) 2,000 unit PO 11/11/19 [Vitamin D3] Docusate Calcium 240 mg PO 11/11/19 Donepezil [Aricept] 5 mg PO DAILY 11/11/19 11/11/19 Propranolol [Inderal] 10 mg PO BID 11/11/19 11/11/19 Sertraline [Zoloft] 25 mg PO DAILY 11/11/19 11/11/19 Tamsulosin [Flomax] 0.4 mg PO ONCE 11/11/19 11/11/19 polyethylene glycoL 3350 [Miralax] 17 gm PO DAILY 11/11/19 11/11/19 Hydrocodone/Acetaminophen 1 - 2 tab PO Q6H PRN #15 tablet 06/17/20 [Hydrocodone-Acetamin 5-325 mg] Acetaminophen [Acetaminophen Extra 500 mg PO QID PRN #50 tablet 12/15/21 Strength] cephALEXin [Keflex] 500 mg PO QID 5 Days #20 cap 12/15/21 Cefpodoxime Proxetil [Vantin] 200 mg PO Q12H #28 tablet 08/06/22 - Allergies Allergies/Adverse Reactions: Allergies Allergy/AdvReac Type Severity Reaction Status Date / Time No Known Drug Allergies Allergy Verified 08/05/22 20:22 - Social History Does the pt smoke?: No Smoking Status: Never smoker Does the pt drink ETOH?: No Does the pt have substance abuse?: No - Immunizations Immunizations are current?: Yes - POLST Patient has POLST: No PD ED PE NORMAL - Vitals Vital signs reviewed: Yes - General General: Well developed/nourished, Other (alert, dementia at baseline) - HEENT HEENT: Atraumatic, PERRL, EOMI, Moist mucous membranes, Pharynx benign - Neck Neck: Supple, no meningeal sign - Cardiac Cardiac: RRR - Respiratory Respiratory: No respiratory distress, Clear bilaterally - Abdomen Abdomen: Non tender, Non distended - Back Back: Other (BL CVA discomfort to palpation) - Derm Derm: Normal color, Warm and dry - Extremities Extremities: No deformity - Neuro Neuro: No motor deficit, No sensory deficit Eye Opening: Spontaneous Motor: Obeys Commands Verbal: Confused GCS Score: 14 - Psych Psych: Normal mood, Normal affect Results - Vitals Vitals: Vital Signs - 24 hr 08/05/22 08/05/22 08/05/22 20:19 20:32 20:35 Temperature 37.7 C Heart Rate 108 H 88 87 Respiratory 18 19 21 Rate Blood Pressure 152/64 H 160/110 H 131/58 H O2 Saturation 99 95 98 08/05/22 08/05/22 08/06/22 21:21 23:08 00:27 Temperature Heart Rate 90 72 67 Respiratory 18 19 16 Rate Blood Pressure 137/64 H 126/68 O2 Saturation 98 98 100 08/06/22 08/06/22 01:19 01:36 Temperature Heart Rate 63 66 Respiratory 18 16 Rate Blood Pressure 143/69 H O2 Saturation 99 99 Oxygen O2 Source Room air - Labs Labs: Laboratory Tests 08/05/22 08/05/22 08/05/22 21:14 21:14 21:14 WBC 17.3 H RBC 3.07 L Hgb 9.0 L Hct 28.3 L MCV 92.2 MCH 29.3 MCHC 31.8 L RDW 14.0 Plt Count 352 MPV 8.4 Neut # (Auto) 15.4 H Lymph # (Auto) 0.5 L Frio # (Auto) 0.7 Eos # (Auto) 0.1 Baso # (Auto) 0.1 Absolute Nucleated RBC 0.00 Nucleated RBC % 0.0 Sodium 135 Potassium 4.3 Chloride 107 Carbon Dioxide 19 L Anion Gap 9.0 BUN 39 H Creatinine 2.0 H Estimated GFR (MDRD) 32 L Glucose 174 H Calcium 8.9 Total Bilirubin 0.3 AST 20 ALT 14 Alkaline Phosphatase 60 B-Natriuretic Peptide 141 H Total Protein 6.3 L Albumin 3.5 Globulin 2.8 Albumin/Globulin Ratio 1.3 Lipase 37 Urine Color Urine Clarity Urine pH Ur Specific [place] Urine Protein Urine Glucose (UA) Urine Ketones Urine Occult Blood Urine Nitrite Urine Bilirubin Urine Urobilinogen Ur Leukocyte Esterase Urine RBC Urine WBC Ur Squamous Epith Cells Urine Bacteria Ur Microscopic Review Urine Culture Comments 08/05/22 22:50 WBC RBC Hgb Hct MCV MCH MCHC RDW Plt Count MPV Neut # (Auto) Lymph # (Auto) Frio # (Auto) Eos # (Auto) Baso # (Auto) Absolute Nucleated RBC Nucleated RBC % Sodium Potassium Chloride Carbon Dioxide Anion Gap BUN Creatinine Estimated GFR (MDRD) Glucose Calcium Total Bilirubin AST ALT Alkaline Phosphatase B-Natriuretic Peptide Total Protein Albumin Globulin Albumin/Globulin Ratio Lipase Urine Color YELLOW Urine Clarity CLOUDY Urine pH 6.0 Ur Specific [place] 1.015 Urine Protein 100 H Urine Glucose (UA) NEGATIVE Urine Ketones NEGATIVE Urine Occult Blood LARGE H Urine Nitrite NEGATIVE Urine Bilirubin NEGATIVE Urine Urobilinogen 0.2 (NORMAL) Ur Leukocyte Esterase LARGE H Urine RBC 11-25 H Urine WBC >25 H Ur Squamous Epith Cells RARE Squamous Urine Bacteria Many H Ur Microscopic Review INDICATED Urine Culture Comments INDICATED PD MEDICAL DECISION MAKING - ED course ED course: 87-year-old male presents with pyelonephritis and OTILIO with baseline creatinine of 0.9 in 2016 up to 2 today and GFR 93 in 2016 down to 32 today. d/w Dr. Prather, located within [facility] for admission. antibiotics provided. Departure - Departure Disposition: [facility] DC/Xfer Clinical Impression: OTILIO (acute kidney injury), Weakness, Altered mental status, Pyelonephritis Condition: Stable Prescriptions: Cefpodoxime Proxetil [Vantin] 200 mg PO Q12H #28 tablet
[2022-08-06] MEDS ORDERED: cefTRIAXone 1 GM VIAL ONE (01:27)
[2022-08-06] MEDS ORDERED: SODIUM CHLORIDE 0.9% 500 ML IV STA (01:41)
--- NOTE | 2022-08-06 02:06 | CT Report ---
PROCEDURE: ABDOMEN/PELVIS WO INDICATIONS: uti, kendy TECHNIQUE: Noncontrast 5 mm thick sections acquired from the diaphragms to the symphysis. 5 mm coronal and sagi ttal reformats were then performed. For radiation dose reduction, the following was used: automated exposure control, adjustment of mA and/or kV according to patient size. COMPARISON: None. FINDINGS: Image quality: Excellent. Lung bases:There is mild dependent atelectasis bilaterally. There is a small right pleural effusion. Heart: Heart is normal in size. ABDOMEN: Liver: No mass lesion. Gallbladder: Within normal limits without calcified gallstones. Biliary ducts: No biliary ductal dilatation. Pancreas: Unremarkable. Spleen: Normal in size. Adrenal Glands: No adrenal nodules. Kidneys and Ureters:There is bilateral moderate hydroureteronephrosis extending to the urinary bladd er. Associated perinephric and perirenal fat stranding are demonstrated. No discrete obstructing ston e or mass identified. Stomach and Bowel: Stomach, small bowel loops, and colon are normal in caliber and wall thickness. N o pericecal inflammatory changes to suggest appendicitis. There is moderate stool distention in the c olon including prominent distention of the rectosigmoid colon. The findings are suggestive of constip ation or impaction. Peritoneum: No abnormal intraperitoneal fluid. No free air. Ventral Wall: No hernia. Abdominal Nodes: No retroperitoneal or mesenteric adenopathy by size criteria. Vessels: Aorta and inferior vena cava are normal in size. PELVIS: Pelvic Organs: Unremarkable. Bladder:There is mild bladder wall thickening and trabeculation with minimal perivesicular with fat stranding.. Pelvic Nodes: No enlarged lymph nodes. Miscellaneous: No inguinal hernias are seen. Bones: Visualized osseous structures demonstrate no suspicious focal lesions. IMPRESSION: 1. Bilateral moderate hydronephrosis extending to the uterovesical junctions with associated perineph rome and perirenal fat stranding suggesting sequelae of a urinary tract infection. No discrete obstruc ting stones or mass visualized. 2. Mild bladder wall thickening and spiculation with associated mild fat stranding. A cystitis cannot be excluded. Reviewed by: Syd Rai MD on 08/06/2022 2:04 AM PDT Approved by: Syd Rai MD on 08/06/2022 2:04 AM PDT Station ID: [id number]
--- NOTE | 2022-08-06 02:27 | HISTORY & PHYSICAL EXAMINATION ---
Chief Complaint - Chief Complaint Chief Complaint: malaise History of Present Illness - Admitted From Admitted From:: home - History Obtained From History obtained from: at bedside Exam Limitations: telemedicine - History of Present Illness HPI Comment/Other: Mr Avila is an 87 yo M with hx dementia, BPH, hx frequent UTIs, status post urologic intervention with Dr. Flores ([facility]) in December 2021, now no longer requiring alcantara cathether. Presnts to ER w c/o "not feeling well". Pt is hard of hearing, does not have hearing aids. Hx obtained from his at bedside. However pt was w caregiver during the day, she saw him in the evening and after dinner he c/o not feeling well, he had chills. He also had back pain. She also states he keeps wanting to urinate but only has a few drops at a time. No blood in urine. Unable to obtain further ROS. History - Past Medical History Cardiovascular: reports: High cholesterol Respiratory: reports: None Neuro: reports: Dementia Endocrine/Autoimmune: reports: None GI: reports: Chronic constipation : reports: Benign prostate hypertrophy HEENT: reports: None Psych: reports: None Musculoskeletal: reports: None Derm: reports: None MRSA Hx?: Yes - Past Surgical History General: reports: Appendectomy Ortho: reports: Knee replacement, Other - Substance History Use: Uses substance without health or social issues: NONE - POLST Patient has POLST: No Meds/Allgy - Home Medications Home Medications: Ambulatory Orders Medication Instructions Recorded Confirmed Alfuzosin HCl [Uroxatral] 10 mg PO DAILY 07/28/15 11/06/19 Docusate Sodium 100Mg Capsule 100 mg PO BID #30 capsule 07/28/15 11/06/19 [Colace] Simvastatin 20 mg PO DAILY 08/06/18 11/06/19 Alfuzosin HCl [Alfuzosin HCl ER] 10 mg PO 11/11/19 Cholecalciferol (Vitamin D3) 2,000 unit PO 11/11/19 [Vitamin D3] Docusate Calcium 240 mg PO 11/11/19 Donepezil [Aricept] 5 mg PO DAILY 11/11/19 11/11/19 Propranolol [Inderal] 10 mg PO BID 11/11/19 11/11/19 Sertraline [Zoloft] 25 mg PO DAILY 11/11/19 11/11/19 Tamsulosin [Flomax] 0.4 mg PO ONCE 11/11/19 11/11/19 polyethylene glycoL 3350 [Miralax] 17 gm PO DAILY 11/11/19 11/11/19 Hydrocodone/Acetaminophen 1 - 2 tab PO Q6H PRN #15 tablet 06/17/20 [Hydrocodone-Acetamin 5-325 mg] Acetaminophen [Acetaminophen Extra 500 mg PO QID PRN #50 tablet 12/15/21 Strength] cephALEXin [Keflex] 500 mg PO QID 5 Days #20 cap 12/15/21 Cefpodoxime Proxetil [Vantin] 200 mg PO Q12H #28 tablet 08/06/22 - Allergies Allergies/Adverse Reactions: Allergies Allergy/AdvReac Type Severity Reaction Status Date / Time No Known Drug Allergies Allergy Verified 08/05/22 20:22 Review of Systems - Constitutional Constitutional: reports: Fatigue, Chills, Malaise, Weakness - Ears, Nose & Throat Ears, Nose & Throat: reports: Hearing aids - Genitourinary Genitourinary: reports: Urgency, Other (decreased urine output) - Musculoskeletal Musculoskeletal: reports: Back pain - Integumentary Integumentary: denies: Rash - All Other Systems All Other Systems: reports: Other (unable to obtain complete ROS, pt ANGOON unable to answer questions.) Prior Level of Functionality: ambulates w walker Exam - Vital Signs Reviewed Vital Signs: Yes Vital Signs: Vital Signs x48h Temp Pulse Resp BP Pulse Ox 08/06/22 01:36 66 16 143/69 H 99 08/06/22 01:19 63 18 99 08/06/22 00:27 67 16 126/68 100 08/05/22 23:08 72 19 98 08/05/22 21:21 90 18 137/64 H 98 08/05/22 20:35 87 21 131/58 H 98 08/05/22 20:32 88 19 160/110 H 95 08/05/22 20:19 37.7 C 108 H 18 152/64 H 99 - Physical Exam General Appearance: positive: No acute distress, Alert Eyes Bilateral: positive: Normal inspection ENT: positive: Other (ANGOON) Neck: positive: Nml inspection Respiratory: positive: No respiratory distress Skin: positive: Color nml, No rash Neurologic/Psychiatric: positive: Other (unable to assess orientation, pt cannot hear) Conclusion/Plan - Lab Results Lab results reviewed: Yes Fish Bones: 08/05/22 21:14 08/05/22 21:14 - Diagnostic Imaging Results Diagnostic Imaging Results: positive: Final report reviewed - Other Other Results/Comments: Assessment/Plan: Pyelonephritis -Chills, elevated leukocytosis -Afebrile -Continue IV abx -F/u cultures BPH Moderate bilateral hydronephrosis noted on CT -No obstructing stones noted -Pt w urinary hesitancy -Insert indwelling alcantara catheter OTILIO -2/2 obstructive hydronephrosis/BPH and acute infection -IV fluids for hydration -Alcantara -Trend labs Hx Dementia, Depression -Home med rec pending Full code (per ) DVT ppx Heparin sc Clinical telemedicine services delivered using interactive video audio telecommunications while the patient and the rendering provider were not in the same physical location.
[2022-08-06] MEDS ORDERED: ONDANSETRON 4 MG/2 ML VIAL IVP PRN (02:33)
[2022-08-06] MEDS ORDERED: SODIUM CHLORIDE FLUSH 0.9% 10 ML SYRINGE IVP PRN (02:33)
[2022-08-06] MEDS ORDERED: ACETAMINOPHEN 325 MG TABLET PO PRN (02:33)
[2022-08-06] MEDS: SODIUM CHLORIDE 0.9% 1,000 ML IV SCH ×3 (03:05→22:06)
[2022-08-06 08:10] LABS: BASOPHILS # (AUTO) 0.1 10^3/uL (0.0-0.1); BASOPHILS % (AUTO) 0.8 %; EOSINOPHILS # (AUTO) 0.3 10^3/uL (0.0-0.7); EOSINOPHILS % (AUTO) 2.3 %; HGB - HEMOGLOBIN 8.7 g/dL (14.0-18.0); LYMPHOCYTES % (AUTO) 16.9 %; MEAN CORPUSCULAR HEMOGLOBIN 28.9 pg (27.0-31.0); MEAN CORPUSCULAR HGB CONC 31.1 g/dL (32.0-36.0); MEAN PLATELET VOLUME 8.5 fL (7.4-11.4); MONOCYTES # (AUTO) 0.8 10^3/uL (0.0-1.0); MONOCYTES % (AUTO) 6.6 %; NEUTROPHILS # (AUTO) 8.6 10^3/uL (1.5-6.6); NEUTROPHILS % (AUTO) 72.6 %; PLT - PLATELET COUNT 344 10^3/uL (130-450); RED BLOOD COUNT 3.01 10^6/uL (4.70-6.10); RED CELL DISTRIBUTION WIDTH 14.1 % (12.0-15.0); WHITE BLOOD COUNT 11.8 x10^3/uL (4.8-10.8)
[2022-08-06 08:19] LABS: CALCIUM 9.1 mg/dL (8.5-10.3); POTASSIUM 4.2 mmol/L (3.5-5.0)
[2022-08-06] MEDS: DONEPEZIL 5 MG TABLET PO SCH (08:50)
[2022-08-06] MEDS: HEPARIN 5,000 UNIT/ML VIAL SUBQ SCH ×2 (08:51→22:03)
[2022-08-06] MEDS: SODIUM CHLORIDE FLUSH 0.9% 10 ML SYRINGE IVP SCH ×2 (09:05→16:20)
[2022-08-06] MEDS: TAMSULOSIN 0.4 MG CAPSULE PO SCH (10:44)
[2022-08-06] MEDS: LACTOBACILLUS RHAMNOSUS GG CAPSULE PO SCH (10:44)
[2022-08-06] MEDS: PHENAZOPYRIDINE 100 MG TABLET PO SCH ×2 (13:06→22:04)
--- NOTE | 2022-08-06 14:01 | PHARMACY PROGRESS NOTE ---
- Best Possible Medication History Admit Date and Time: 08/06/22 0233 Processed by: Pharmacy Medication History completed: Yes Patient Interview: Pt unable to participate Secondary Source(s): Insurance records (Pt unable to participate due to demen tia. I called and spoke with , who states that patient takes no other medications at home other than Sertraline 50mg once a day.) As the person ultimately responsible for medication therapy, providers are able to order a medication from an existing home medication list in [facility] via the "Reconcile Routine" prior to Confirmation of that medication by computer technical support specialist. Such practice is discouraged except when the physician, in their clinical judgment, deems that a medical need exists for a medication without regard to previous use.
[2022-08-07] MEDS ORDERED: cefTRIAXone 1 GM VIAL ONE (02:46)
[2022-08-07] MEDS ORDERED: SODIUM CHLORIDE 0.9% 100ML 100 ML IV ONE (02:46)
[2022-08-07] MEDS: SODIUM CHLORIDE FLUSH 0.9% 10 ML SYRINGE IVP SCH ×3 (02:50→16:05)
[2022-08-07] MEDS ORDERED: cefTRIAXone 1 GM in SODIUM CHLORIDE 0.9% MINIBAG 100 ML IV SCH (03:00)
[2022-08-07 04:55] LABS: BASOPHILS # (AUTO) 0.1 10^3/uL (0.0-0.1); BASOPHILS % (AUTO) 0.9 %; EOSINOPHILS # (AUTO) 0.4 10^3/uL (0.0-0.7); EOSINOPHILS % (AUTO) 4.4 %; HCT - HEMATOCRIT 26.6 % (42.0-52.0); HGB - HEMOGLOBIN 8.2 g/dL (14.0-18.0); LYMPHOCYTES # (AUTO) 2.5 10^3/uL (1.5-3.5); LYMPHOCYTES % (AUTO) 25.9 %; MEAN CORPUSCULAR HEMOGLOBIN 28.8 pg (27.0-31.0); MEAN CORPUSCULAR HGB CONC 30.8 g/dL (32.0-36.0); MEAN CORPUSCULAR VOLUME 93.3 fL (80.0-94.0); MEAN PLATELET VOLUME 8.8 fL (7.4-11.4); MONOCYTES # (AUTO) 0.9 10^3/uL (0.0-1.0); MONOCYTES % (AUTO) 8.7 %; NEUTROPHILS # (AUTO) 5.8 10^3/uL (1.5-6.6); NEUTROPHILS % (AUTO) 59.7 %; PLT - PLATELET COUNT 332 10^3/uL (130-450); RED BLOOD COUNT 2.85 10^6/uL (4.70-6.10); RED CELL DISTRIBUTION WIDTH 14.1 % (12.0-15.0); WHITE BLOOD COUNT 9.8 x10^3/uL (4.8-10.8)
[2022-08-07 05:09] LABS: CALCIUM 8.6 mg/dL (8.5-10.3); CREATININE 1.9 mg/dL (0.6-1.2); POTASSIUM 4.5 mmol/L (3.5-5.0)
[2022-08-07] MEDS: SODIUM CHLORIDE 0.9% 1,000 ML IV SCH ×2 (08:43→18:37)
[2022-08-07] MEDS: DONEPEZIL 5 MG TABLET PO SCH (08:44)
[2022-08-07] MEDS: TAMSULOSIN 0.4 MG CAPSULE PO SCH (08:45)
[2022-08-07] MEDS: PHENAZOPYRIDINE 100 MG TABLET PO SCH ×3 (08:45→21:18)
[2022-08-07] MEDS: LACTOBACILLUS RHAMNOSUS GG CAPSULE PO SCH (08:45)
[2022-08-07] MEDS: SERTRALINE 50 MG TABLET PO SCH (08:51)
[2022-08-07] MEDS: HEPARIN 5,000 UNIT/ML VIAL SUBQ SCH ×2 (08:52→21:18)
--- NOTE | 2022-08-07 08:58 | PROVIDER PROGRESS NOTE ---
Assessment/Plan - Problem List (1) Pyelonephritis Assessment/Plan: He did experience chills, had elevated WBC. Urine cx taken and results are growing a Gram neg carolynn. WBC has improved 17>> 11> 9.8 today. It looks like no blood cx were done. Continue empiric IV abx Ceftriaxone Await culture results to tailor antibx. Plan a 21 day course of antibx for good prostate penetration. We started Flomax and Pyridium (2) Hydronephrosis As per CT imaging. Plan Alcantara to continue at time of DCh (3) BPH Causing moderate bilateral hydronephrosis noted on CT. Pt had urinary hesitancy We inserted indwelling alcantara catheter and he will need to go home with this and have Urology management again. Will try to reach his Urologist today for Hx info/recommendations (status post urologic intervention with Dr. Flores ([facility]) in December 2021). We started Flomax and Pyridium (4) OTILIO Due to obstruction IV fluids started and will continue Alcantara to continue drainage Monitoring BMP daily (5) Dementia with behavioral disturbance He is only oriented to self, not place or time. He repeatedly gets up from chair, says he needs to urinate in the bathroom, needs to be reminded that he has a catheter. He feeds himself. Aricept restarted. May need to add Zyprexa or Haldol (6) Hx Depression Home meds restarted - Current Meds Current Meds: Current Medications Generic Name Dose Route Start Last Admin Trade Name Ken PRN Reason Stop Dose Admin Donepezil HCl 5 mg 08/06/22 09:00 08/07/22 08:44 Donepezil 5 Mg Tablet PO 5 mg DAILY LUIS ANTONIO Administration Heparin Sodium (Porcine) 5,000 unit 08/06/22 09:00 08/06/22 22:03 Heparin 5,000 Unit/Ml Vial SUBQ 5,000 unit BID LUIS ANTONIO Administration Sodium Chloride 1,000 mls @ 100 mls/hr 08/06/22 03:00 08/07/22 08:43 Normal Saline 0.9% IV 100 mls/hr .Q10H LUIS ANTONIO Administration Ceftriaxone Sodium 1 gm/ 100 mls @ 200 mls/hr 08/07/22 03:00 08/07/22 07:28 Sodium Chloride IV 08/08/22 02:59 Infused ONCE LUIS ANTONIO Infusion Lactobacillus Rhamnosus 1 cap 08/06/22 11:00 08/07/22 08:45 Lactobacillus Rhamnosus Gg Capsule PO 1 cap DAILY LUIS ANTONIO Administration Phenazopyridine HCl 100 mg 08/06/22 14:00 08/07/22 08:45 Phenazopyridine 100 Mg Tablet PO 100 mg TID LUIS ANTONIO Administration Sodium Chloride 10 ml 08/06/22 09:00 08/07/22 02:50 Sodium Chloride Flush 0.9% 10 Ml Syringe IVP Not Given 0100,0900,1700 [facility] Tamsulosin HCl 0.4 mg 08/06/22 11:00 08/07/22 08:45 Tamsulosin 0.4 Mg Capsule PO 0.4 mg DAILY LUIS ANTONIO Administration - Lab Result Fish Bone Diagrams: 08/07/22 04:25 08/07/22 04:25 - Additional Planning My Orders: My Active Orders 08/06/22 09:00 Donepezil [Aricept] 5 mg PO DAILY 08/06/22 11:00 Lactobacillus Rhamnosus GG [Culturelle] 1 cap PO DAILY Tamsulosin [Flomax] 0.4 mg PO DAILY 08/06/22 14:00 Phenazopyridine [Pyridium] 100 mg PO TID 08/07/22 09:00 Sertraline [Zoloft] 50 mg PO DAILY Subjective - Subjective Patient Reports: Resting Comfortably, No Complaints (Sitting up in a chair, eating his breakfast. He is clean and shaven. 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 moist/pink Neck: Supple, No JVD Neuro: Alert, Disoriented, Non Focal Cardiovascular: Regular rate, No murmurs Respiratory: No respiratory distress, Breath sounds nml Abdomen: Normal bowel sounds, Soft Genitourinary: Other (Alcantara in place) Extremities: No clubbing, No edema, No tenderness/swelling - Results Results: Laboratory Results WBC 9.8 x10^3/uL (4.8-10.8) 08/07/22 04:25 RBC 2.85 10^6/uL (4.70-6.10) L 08/07/22 04:25 Hgb 8.2 g/dL (14.0-18.0) L 08/07/22 04:25 Hct 26.6 % (42.0-52.0) L 08/07/22 04:25 MCV 93.3 fL (80.0-94.0) 08/07/22 04:25 MCH 28.8 pg (27.0-31.0) 08/07/22 04:25 MCHC 30.8 g/dL (32.0-36.0) L 08/07/22 04:25 RDW 14.1 % (12.0-15.0) 08/07/22 04:25 Plt Count 332 10^3/uL (130-450) 08/07/22 04:25 MPV 8.8 fL (7.4-11.4) 08/07/22 04:25 Neut # (Auto) 5.8 10^3/uL (1.5-6.6) 08/07/22 04:25 Lymph # (Auto) 2.5 10^3/uL (1.5-3.5) 08/07/22 04:25 [place] # (Auto) 0.9 10^3/uL (0.0-1.0) 08/07/22 04:25 Eos # (Auto) 0.4 10^3/uL (0.0-0.7) 08/07/22 04:25 Baso # (Auto) 0.1 10^3/uL (0.0-0.1) 08/07/22 04:25 Absolute Nucleated RBC 0.00 x10^3/uL 08/07/22 04:25 Nucleated RBC % 0.0 /100WBC 08/07/22 04:25 Sodium 138 mmol/L (135-145) 08/07/22 04:25 Potassium 4.5 mmol/L (3.5-5.0) 08/07/22 04:25 Chloride 110 mmol/L (101-111) 08/07/22 04:25 Carbon Dioxide 21 mmol/L (21-32) 08/07/22 04:25 Anion Gap 7.0 (6-13) 08/07/22 04:25 BUN 35 mg/dL (6-20) H 08/07/22 04:25 Creatinine 1.9 mg/dL (0.6-1.2) H 08/07/22 04:25 Estimated GFR (MDRD) 34 (>89) L 08/07/22 04:25 Glucose 104 mg/dL (70-100) H 08/07/22 04:25 Calcium 8.6 mg/dL (8.5-10.3) 08/07/22 04:25 Total Bilirubin 0.3 mg/dL (0.2-1.0) 08/05/22 21:14 AST 20 IU/L (10-42) 08/05/22 21:14 ALT 14 IU/L (10-60) 08/05/22 21:14 Alkaline Phosphatase 60 IU/L (42-121) 08/05/22 21:14 B-Natriuretic Peptide 141 pg/mL (5-100) H 08/05/22 21:14 Total Protein 6.3 g/dL (6.7-8.2) L 08/05/22 21:14 Albumin 3.5 g/dL (3.2-5.5) 08/05/22 21:14 Globulin 2.8 g/dL (2.1-4.2) 08/05/22 21:14 Albumin/Globulin Ratio 1.3 (1.0-2.2) 08/05/22 21:14 Lipase 37 U/L (22-51) 08/05/22 21:14 Urine Color YELLOW 08/05/22 22:50 Urine Clarity CLOUDY (CLEAR) 08/05/22 22:50 Urine pH 6.0 PH (5.0-7.5) 08/05/22 22:50 Ur Specific [place] 1.015 (1.002-1.030) 08/05/22 22:50 Urine Protein 100 mg/dL (NEGATIVE) H 08/05/22 22:50 Urine Glucose (UA) NEGATIVE mg/dL (NEGATIVE) 08/05/22 22:50 Urine Ketones NEGATIVE mg/dL (NEGATIVE) 08/05/22 22:50 Urine Occult Blood LARGE (NEGATIVE) H 08/05/22 22:50 Urine Nitrite NEGATIVE (NEGATIVE) 08/05/22 22:50 Urine Bilirubin NEGATIVE (NEGATIVE) 08/05/22 22:50 Urine Urobilinogen 0.2 (NORMAL) E.U./dL (NORMAL) 08/05/22 22:50 Ur Leukocyte Esterase LARGE (NEGATIVE) H 08/05/22 22:50 Urine RBC 11-25 /HPF (0-5) H 08/05/22 22:50 Urine WBC >25 /HPF (0-3) H 08/05/22 22:50 Ur Squamous Epith Cells RARE Squamous (<= Few) 08/05/22 22:50 Urine Bacteria Many /HPF (None Seen) H 08/05/22 22:50 Ur Microscopic Review INDICATED 08/05/22 22:50 Urine Culture Comments INDICATED 08/05/22 22:50 SARS-CoV-2 (PCR) NOT DETECTED 08/06/22 06:05
[2022-08-07] MEDS: diphenhydrAMINE 25 MG CAPSULE PO SCH (21:18)
[2022-08-08] MEDS: SODIUM CHLORIDE 0.9% 1,000 ML IV SCH ×3 (04:42→17:15)
[2022-08-08] MEDS: SODIUM CHLORIDE FLUSH 0.9% 10 ML SYRINGE IVP SCH ×3 (05:17→17:15)
[2022-08-08 08:58] LABS: BASOPHILS # (AUTO) 0.1 10^3/uL (0.0-0.1); EOSINOPHILS # (AUTO) 0.7 10^3/uL (0.0-0.7); HCT - HEMATOCRIT 26.7 % (42.0-52.0); HGB - HEMOGLOBIN 8.3 g/dL (14.0-18.0); LYMPHOCYTES # (AUTO) 3.3 10^3/uL (1.5-3.5); LYMPHOCYTES % (AUTO) 33.8 %; MEAN CORPUSCULAR HEMOGLOBIN 28.7 pg (27.0-31.0); MEAN CORPUSCULAR HGB CONC 31.1 g/dL (32.0-36.0); MEAN CORPUSCULAR VOLUME 92.4 fL (80.0-94.0); MEAN PLATELET VOLUME 8.3 fL (7.4-11.4); MONOCYTES # (AUTO) 0.9 10^3/uL (0.0-1.0); MONOCYTES % (AUTO) 9.5 %; NEUTROPHILS # (AUTO) 4.8 10^3/uL (1.5-6.6); NEUTROPHILS % (AUTO) 48.4 %; PLT - PLATELET COUNT 301 10^3/uL (130-450); RED BLOOD COUNT 2.89 10^6/uL (4.70-6.10); RED CELL DISTRIBUTION WIDTH 13.9 % (12.0-15.0); WHITE BLOOD COUNT 9.9 x10^3/uL (4.8-10.8)
[2022-08-08] MEDS ORDERED: cefTRIAXone 1 GM in SODIUM CHLORIDE 0.9% MINIBAG 100 ML IV SCH (09:00)
[2022-08-08 09:07] LABS: CALCIUM 8.6 mg/dL (8.5-10.3); CREATININE 1.9 mg/dL (0.6-1.2); POTASSIUM 4.3 mmol/L (3.5-5.0)
[2022-08-08] MEDS: HEPARIN 5,000 UNIT/ML VIAL SUBQ SCH ×2 (09:20→20:59)
[2022-08-08] MEDS: TAMSULOSIN 0.4 MG CAPSULE PO SCH (09:21)
[2022-08-08] MEDS: PHENAZOPYRIDINE 100 MG TABLET PO SCH ×3 (09:21→20:59)
[2022-08-08] MEDS: LACTOBACILLUS RHAMNOSUS GG CAPSULE PO SCH (09:21)
[2022-08-08] MEDS: SERTRALINE 50 MG TABLET PO SCH (09:21)
[2022-08-08] MEDS: DONEPEZIL 5 MG TABLET PO SCH (09:22)
[2022-08-08] MEDS: levoFLOXacin 250 MG TABLET PO SCH (09:22)
--- NOTE | 2022-08-08 14:50 | PROVIDER PROGRESS NOTE ---
Assessment/Plan - Problem List (1) Pyelonephritis Assessment/Plan: As per CT imaging at admission See plan in #2 (2) E coli UTI He did experience chills, and had elevated WBC at admission. Urine cx taken and results are growing a albrecht-sensitive E coli. WBC has improved daily. It looks like no blood cx were done. Will change his empiric IV abx Ceftriaxone to Levaquin 750 mg daily Plan a 21 day course of antibx for good prostate penetration. We started Flomax and Pyridium He is on a probiotic orally as well (3) Hydronephrosis As per CT imaging. See discussion in #4 Plan Alcantara to continue at time of DCh (4) Urinary retention Causing moderate bilateral hydronephrosis noted on CT. Pt had urinary urgency and frequency reported at admission. We inserted indwelling alcantara catheter and he will need to go home with this and have Urology management again. We started Flomax and Pyridium We asked for records from his Urologist for Hx (Dr. Flores, [facility]). These were received and reviewed. He required a Alcantara catheter last year and was on meds for BPH. He then underwent TURP for his BPH in 12/2021, which had benign pathology, but his postop visit in 02/2022 showed no improvement in his symptoms of urgency, frequency and urge incontinence. He was diagnosed with detrusor hyperactivityand impaired contractiltiy. Dr Flores ordered that the Aluzosin and Finasteride can be stopped. Pt was not willing to self-catheterize. Medication to calm down frequency and urgency will increase his urinary retention so that was contraindicated. He declined having an indwelling catheter inserted. He wanted to try a condom catheter for quality of life and was to let Dr Flores know his decision. Unknown if there was more contact after that. I called Dr Flores's office today ([phone]), spoke to RN, who gave me his pager, which I beeped (([phone]), but I got no call back. With the at bedside, I presented to them both that his options are the following: Condom catheter probably is not enough as he needs drainage starting at the bladder. He can go home with a Alcantara catheter and needs Alcantara management with leg bag and draining the bag. He can have it indwelling catheter inserted into his bladder. He can have self catheterizations done several times per day. The said the decision is up to her because of his dementia. She wants him to get a chronic indwelling Alcantara. I will discuss this with Dr. Flores and will also consider/ask if our general surgeon can place this while he is here. Otherwise, plan Alcantara to continue at time of [facility] and needs to hire caregivers to do Alcantara care. Currently she has caregivers for him on Thursday for several hours. She would at least need caregivers 5 days a week and learn to do it herself, which she stated she does not want to learn or do. Social work was asked to speak to her today. (5) OTILIO Due to obstruction IV fluids started and will continue Alcantara to continue drainage Monitoring BMP daily (6) Dementia with behavioral disturbance He is only oriented to self, not place or time. He gets up from chair repeatedly, says he needs to urinate, wants to go to the bathroom, and needs to be reminded that he has a catheter and is helped back to sit. He feeds himself. Aricept restarted. Last night the requested he get "something for sleep". He was given po Benadryl at 2100. He only fell asleep at 0300. Today the told me that he has severe insomnia because of his urinary sx. At home he gets up once an hour at night, uses his walker to get to the bathroom which is only about 10 feet away but creates a lot of noise May need to add Zyprexa or Haldol (7) Hx Depression Home meds restarted - Current Meds Current Meds: Current Medications Generic Name Dose Route Start Last Admin Trade Name Ken PRN Reason Stop Dose Admin Diphenhydramine HCl 25 mg 08/07/22 21:00 08/07/22 21:18 Diphenhydramine 25 Mg Capsule PO 25 mg QPM LUIS ANTONIO Administration Donepezil HCl 5 mg 08/06/22 09:00 08/08/22 09:22 Donepezil 5 Mg Tablet PO 5 mg DAILY LUIS ANTONIO Administration Heparin Sodium (Porcine) 5,000 unit 08/06/22 09:00 08/08/22 09:20 Heparin 5,000 Unit/Ml Vial SUBQ 5,000 unit BID LUIS ANTONIO Administration Lactobacillus Rhamnosus 1 cap 08/06/22 11:00 08/08/22 09:21 Lactobacillus Rhamnosus Gg Capsule PO 1 cap DAILY LUIS ANTONIO Administration Levofloxacin 750 mg 08/08/22 09:00 08/08/22 09:22 Levofloxacin 250 Mg Tablet PO 750 mg Q48H LUIS ANTONIO Administration Phenazopyridine HCl 100 mg 08/06/22 14:00 08/08/22 09:21 Phenazopyridine 100 Mg Tablet PO 100 mg TID LUIS ANTONIO Administration Sertraline HCl 50 mg 08/07/22 09:00 08/08/22 09:21 Sertraline 50 Mg Tablet PO 50 mg DAILY LUIS ANTONIO Administration Sodium Chloride 10 ml 08/06/22 09:00 08/08/22 09:22 Sodium Chloride Flush 0.9% 10 Ml Syringe IVP Not Given 0100,0900,1700 LUIS ANTONIO Tamsulosin HCl 0.4 mg 08/06/22 11:00 08/08/22 09:21 Tamsulosin 0.4 Mg Capsule PO 0.4 mg DAILY LUIS ANTONIO Administration - Lab Result Fish Bone Diagrams: 08/08/22 08:52 08/08/22 08:52 - Additional Planning My Orders: My Active Orders 08/07/22 21:00 diphenhydrAMINE [Benadryl] 25 mg PO QPM 08/08/22 09:00 levoFLOXacin [Levaquin] 750 mg PO Q48H 08/08/22 09:25 Alcantara Catheter Education [RC] QSHIFT Sodium Chloride 0.9% [Normal Saline 0.9%] 1,000 ml IV 50 mls/hr 08/09/22 05:00 BMP - BASIC METABOLIC PANEL [CHEM] DAILYLAB CBC - COMP BLD CT W/AUTO DIFF [HEME] DAILYLAB Subjective - Subjective Patient Reports: Resting Comfortably Nursing Reports: Other (His is at bedside and she reports that he will forget something he just talked about from 2 minutes previously) Objective Vital Signs: Vital Signs - 24 hr 08/07/22 08/07/22 08/08/22 16:11 23:50 09:09 Temperature 36.7 C 36.7 C 36.5 C Heart Rate [ 60 66 74 Brachial] Respiratory 18 18 20 Rate Blood Pressure 175/75 H [Left Brachial artery] Blood Pressure 159/71 H 162/93 H [Right Brachial artery] O2 Saturation 98 98 96 Oxygen O2 Source Room air I&O (Last 24 Hrs): Intake and Output Totals x24h 08/06/22 08/07/22 08/08/22 23:59 23:59 23:59 Intake Total 4685 4520 1845 Output Total 2099 2049 3200 Balance 2585 2470 -1355 General: Alert HEENT: Mucous membr. moist/pink Neck: Supple, No JVD Neuro: Alert, Non Focal, Other (Very poor memory) Cardiovascular: Regular rate, No murmurs Respiratory: No respiratory distress, Breath sounds nml Abdomen: Normal bowel sounds, Soft Genitourinary: Other (Has Alcantara cath) Extremities: No edema - Results Results: Laboratory Results WBC 9.9 x10^3/uL (4.8-10.8) 08/08/22 08:52 RBC 2.89 10^6/uL (4.70-6.10) L 08/08/22 08:52 Hgb 8.3 g/dL (14.0-18.0) L 08/08/22 08:52 Hct 26.7 % (42.0-52.0) L 08/08/22 08:52 MCV 92.4 fL (80.0-94.0) 08/08/22 08:52 MCH 28.7 pg (27.0-31.0) 08/08/22 08:52 MCHC 31.1 g/dL (32.0-36.0) L 08/08/22 08:52 RDW 13.9 % (12.0-15.0) 08/08/22 08:52 Plt Count 301 10^3/uL (130-450) 08/08/22 08:52 MPV 8.3 fL (7.4-11.4) 08/08/22 08:52 Neut # (Auto) 4.8 10^3/uL (1.5-6.6) 08/08/22 08:52 Lymph # (Auto) 3.3 10^3/uL (1.5-3.5) 08/08/22 08:52 [place] # (Auto) 0.9 10^3/uL (0.0-1.0) 08/08/22 08:52 Eos # (Auto) 0.7 10^3/uL (0.0-0.7) 08/08/22 08:52 Baso # (Auto) 0.1 10^3/uL (0.0-0.1) 08/08/22 08:52 Absolute Nucleated RBC 0.00 x10^3/uL 08/08/22 08:52 Nucleated RBC % 0.0 /100WBC 08/08/22 08:52 Sodium 137 mmol/L (135-145) 08/08/22 08:52 Potassium 4.3 mmol/L (3.5-5.0) 08/08/22 08:52 Chloride 109 mmol/L (101-111) 08/08/22 08:52 Carbon Dioxide 21 mmol/L (21-32) 08/08/22 08:52 Anion Gap 7.0 (6-13) 08/08/22 08:52 BUN 27 mg/dL (6-20) H 08/08/22 08:52 Creatinine 1.9 mg/dL (0.6-1.2) H 08/08/22 08:52 Estimated GFR (MDRD) 34 (>89) L 08/08/22 08:52 Glucose 95 mg/dL (70-100) 08/08/22 08:52 Calcium 8.6 mg/dL (8.5-10.3) 08/08/22 08:52 Total Bilirubin 0.3 mg/dL (0.2-1.0) 08/05/22 21:14 AST 20 IU/L (10-42) 08/05/22 21:14 ALT 14 IU/L (10-60) 08/05/22 21:14 Alkaline Phosphatase 60 IU/L (42-121) 08/05/22 21:14 B-Natriuretic Peptide 141 pg/mL (5-100) H 08/05/22 21:14 Total Protein 6.3 g/dL (6.7-8.2) L 08/05/22 21:14 Albumin 3.5 g/dL (3.2-5.5) 08/05/22 21:14 Globulin 2.8 g/dL (2.1-4.2) 08/05/22 21:14 Albumin/Globulin Ratio 1.3 (1.0-2.2) 08/05/22 21:14 Lipase 37 U/L (22-51) 08/05/22 21:14 Urine Color YELLOW 08/05/22 22:50 Urine Clarity CLOUDY (CLEAR) 08/05/22 22:50 Urine pH 6.0 PH (5.0-7.5) 08/05/22 22:50 Ur Specific [place] 1.015 (1.002-1.030) 08/05/22 22:50 Urine Protein 100 mg/dL (NEGATIVE) H 08/05/22 22:50 Urine Glucose (UA) NEGATIVE mg/dL (NEGATIVE) 08/05/22 22:50 Urine Ketones NEGATIVE mg/dL (NEGATIVE) 08/05/22 22:50 Urine Occult Blood LARGE (NEGATIVE) H 08/05/22 22:50 Urine Nitrite NEGATIVE (NEGATIVE) 08/05/22 22:50 Urine Bilirubin NEGATIVE (NEGATIVE) 08/05/22 22:50 Urine Urobilinogen 0.2 (NORMAL) E.U./dL (NORMAL) 08/05/22 22:50 Ur Leukocyte Esterase LARGE (NEGATIVE) H 08/05/22 22:50 Urine RBC 11-25 /HPF (0-5) H 08/05/22 22:50 Urine WBC >25 /HPF (0-3) H 08/05/22 22:50 Ur Squamous Epith Cells RARE Squamous (<= Few) 08/05/22 22:50 Urine Bacteria Many /HPF (None Seen) H 08/05/22 22:50 Ur Microscopic Review INDICATED 08/05/22 22:50 Urine Culture Comments INDICATED 08/05/22 22:50 SARS-CoV-2 (PCR) NOT DETECTED 08/06/22 06:05
[2022-08-08] MEDS: diphenhydrAMINE 25 MG CAPSULE PO SCH (20:59)
[2022-08-09] MEDS: SODIUM CHLORIDE FLUSH 0.9% 10 ML SYRINGE IVP SCH ×2 (04:44→09:03)
[2022-08-09] MEDS: PHENAZOPYRIDINE 100 MG TABLET PO SCH ×3 (05:16→21:03)
[2022-08-09 05:39] LABS: BASOPHILS # (AUTO) 0.1 10^3/uL (0.0-0.1); BASOPHILS % (AUTO) 0.9 %; EOSINOPHILS # (AUTO) 0.6 10^3/uL (0.0-0.7); EOSINOPHILS % (AUTO) 6.2 %; HCT - HEMATOCRIT 25.1 % (42.0-52.0); HGB - HEMOGLOBIN 7.9 g/dL (14.0-18.0); LYMPHOCYTES % (AUTO) 33.3 %; MEAN CORPUSCULAR HEMOGLOBIN 28.9 pg (27.0-31.0); MEAN CORPUSCULAR HGB CONC 31.5 g/dL (32.0-36.0); MEAN CORPUSCULAR VOLUME 91.9 fL (80.0-94.0); MEAN PLATELET VOLUME 8.6 fL (7.4-11.4); MONOCYTES # (AUTO) 0.9 10^3/uL (0.0-1.0); MONOCYTES % (AUTO) 10.4 %; NEUTROPHILS # (AUTO) 4.4 10^3/uL (1.5-6.6); NEUTROPHILS % (AUTO) 48.8 %; PLT - PLATELET COUNT 325 10^3/uL (130-450); RED BLOOD COUNT 2.73 10^6/uL (4.70-6.10); RED CELL DISTRIBUTION WIDTH 13.9 % (12.0-15.0)
[2022-08-09 05:44] LABS: CALCIUM 8.5 mg/dL (8.5-10.3); CREATININE 1.7 mg/dL (0.6-1.2); POTASSIUM 4.2 mmol/L (3.5-5.0)
[2022-08-09] MEDS: DONEPEZIL 5 MG TABLET PO SCH (09:02)
[2022-08-09] MEDS: SERTRALINE 50 MG TABLET PO SCH (09:03)
[2022-08-09] MEDS: LACTOBACILLUS RHAMNOSUS GG CAPSULE PO SCH (09:03)
[2022-08-09] MEDS: HEPARIN 5,000 UNIT/ML VIAL SUBQ SCH ×2 (09:03→21:03)
[2022-08-09] MEDS: SODIUM CHLORIDE 0.9% 1,000 ML IV SCH (12:52)
--- NOTE | 2022-08-09 17:32 | PROVIDER PROGRESS NOTE ---
Assessment/Plan - Problem List (1) Pyelonephritis Assessment/Plan: As per CT imaging at admission See plan in #2 (2) E coli UTI He did experience chills, and had elevated WBC at admission. Urine cx results are growing a albrecht-sensitive E coli. WBC has improved daily. It looks like no blood cx were done. We changed his empiric IV abx Ceftriaxone to Levaquin 750 mg daily Plan a 21 day course of antibx for good prostate penetration. We started Flomax and Pyridium He is on a probiotic orally as well (3) Hydronephrosis As per CT imaging. See discussion in #4 Plan Alcantara catheter to continue at time of DCh (4) Urinary retention Causing moderate bilateral hydronephrosis noted on CT. Pt had urinary urgency and frequency reported at admission. We inserted indwelling alcantara catheter and he will need to go home with this and have Urology management again. We started Flomax and Pyridium We asked for records from his Urologist for Hx (Dr. Flores, [facility]). These were received and reviewed: He required a Alcantara catheter last year and was on meds for BPH. He then underwent TURP for his BPH in 12/2021, which had benign pathology, but his postop visit in 02/2022 showed no improvement in his symptoms of urgency, frequency and urge incontinence. He was diagnosed with detrusor hyperactivityand impaired contractiltiy. Dr Flores ordered that the Aluzosin and Finasteride can be stopped. Pt was not willing to self-catheterize. Medication to calm down frequency and urgency will increase his urinary retention so that was contraindicated. He declined having an indwelling catheter inserted. He wanted to try a condom catheter for quality of life and was to let Dr Flores know his decision. It does not look like there was any more contact with Dr Flores after that. I called Dr Flores's office on 08/08 ([phone]), spoke to RN, who gave me his pager, which I beeped ([phone]), but I got no call back. With the at bedside, I presented to them both that his options are the following: Condom catheter probably is not enough as he needs drainage starting at the bladder. He can go home with a Alcantara catheter and needs Alcantara management with leg bag and draining the bag. He can have an indwelling catheter inserted into his bladder. He can have self catheterizations done several times per day. The said the decision is up to her because of his dementia. She wants him to get a chronic implanted suprapubic catheter. I planned to discuss this with Dr. Flores, but got no call back. I asked if our general surgeon can place this while he is here, and Dr Freitas said this is elective and should be placed by his Urologist. .Will plan Alcantara to continue at time of DC and needs to empty the bag or hire (more) caregivers to do Alcantara care. Currently she has caregivers for him on Thursday for several hours. She would need daily caregivers or learn to do it herself, which she told me she does not want to learn or do. Social work was asked to speak to her today and said the misunderstood, and thought she was going to need to catheterize the pt. She is from [facility], has an accent and may not have understood initially. Will stop the Flomax, as per the Urol notes. (5) OTILIO Due to obstruction and improving daily. Creat at admission was 2.0. Today creat is 1.7 (baseline is creat 1.4) IV fluids started and will decrease rate Alcantara to continue drainage chronically now, is the plan Monitoring BMP daily (6) Dementia with behavioral disturbance He is only oriented to self, not place or time. He cannot remember what was said 5 min previously. He gets up from chair here repeatedly, says he needs to uri yakov, wants to go to the bathroom, and needs to be reminded that he has a catheter and is helped back to sit. He feeds himself. He has not tried to pull out is Alcantara. Aricept was restarted. Recently the requested he get "something for sleep". He was given po Benadryl at 2100. He only fell asleep at 0300. The told me that he has severe insomnia because of his urinary sx. At home he gets up once an hour at night, and uses his walker to get to the bathroom which is only about 10 feet away but creates a lot of noise, so she no longer sleeps in that bedroom. He may need to get Zyprexa or Seroquel (7) Hx Depression Home meds restarted - Current Meds Current Meds: Current Medications Generic Name Dose Route Start Last Admin Trade Name Ken PRN Reason Stop Dose Admin Diphenhydramine HCl 25 mg 08/07/22 21:00 08/08/22 20:59 Diphenhydramine 25 Mg Capsule PO 25 mg QPM LUIS ANTONIO Administration Donepezil HCl 5 mg 08/06/22 09:00 08/09/22 09:02 Donepezil 5 Mg Tablet PO 5 mg DAILY LUIS ANTONIO Administration Heparin Sodium (Porcine) 5,000 unit 08/06/22 09:00 08/09/22 09:03 Heparin 5,000 Unit/Ml Vial SUBQ 5,000 unit BID LUIS ANTONIO Administration Sodium Chloride 1,000 mls @ 50 mls/hr 08/08/22 09:25 08/09/22 12:52 Normal Saline 0.9% IV 50 mls/hr .Q20H LUIS ANTONIO Administration Lactobacillus Rhamnosus 1 cap 08/06/22 11:00 08/09/22 09:03 Lactobacillus Rhamnosus Gg Capsule PO 1 cap DAILY LUIS ANTONIO Administration Levofloxacin 750 mg 08/08/22 09:00 08/08/22 09:22 Levofloxacin 250 Mg Tablet PO 750 mg Q48H LUIS ANTONIO Administration Phenazopyridine HCl 100 mg 08/06/22 14:00 08/09/22 13:48 Phenazopyridine 100 Mg Tablet PO 100 mg TID LUIS ANTONIO Administration Sertraline HCl 50 mg 08/07/22 09:00 08/09/22 09:03 Sertraline 50 Mg Tablet PO 50 mg DAILY LUIS ANTONIO Administration Sodium Chloride 10 ml 08/06/22 09:00 08/09/22 09:03 Sodium Chloride Flush 0.9% 10 Ml Syringe IVP Not Given 0100,0900,1700 LUIS ANTONIO - Lab Result Fish Bone Diagrams: 08/09/22 05:14 08/09/22 05:14 - Additional Planning My Orders: My Active Orders 08/09/22 Social Work Consult [CONS] Routine Subjective - Subjective Patient Reports: Resting Comfortably, No Complaints Objective Vital Signs: Vital Signs - 24 hr 08/09/22 08/09/22 08/09/22 00:00 08:40 16:00 Temperature 36.5 C 36.4 C L 36.4 C L Heart Rate [ 65 72 64 Brachial] Respiratory 18 20 16 Rate Blood Pressure 148/74 H 166/75 H 164/72 H [Right Brachial artery] O2 Saturation 98 97 99 Oxygen O2 Source Room air I&O (Last 24 Hrs): Intake and Output Totals x24h 08/07/22 08/08/22 08/09/22 23:59 23:59 23:59 Intake Total 4520 3230 2009.833 Output Total 2049 4100 1950 Balance 2470 -870 60.833 General: Alert, No acute distress HEENT: Mucous membr. moist/pink Neck: Supple, No JVD Neuro: Alert, Disoriented, Non Focal Cardiovascular: Regular rate Respiratory: No respiratory distress Abdomen: Soft Genitourinary: Other (HAs Alcantara in place) Extremities: No clubbing, No edema, No tenderness/swelling - Results Results: Laboratory Results WBC 9.0 x10^3/uL (4.8-10.8) 08/09/22 05:14 RBC 2.73 10^6/uL (4.70-6.10) L 08/09/22 05:14 Hgb 7.9 g/dL (14.0-18.0) L 08/09/22 05:14 Hct 25.1 % (42.0-52.0) L 08/09/22 05:14 MCV 91.9 fL (80.0-94.0) 08/09/22 05:14 MCH 28.9 pg (27.0-31.0) 08/09/22 05:14 MCHC 31.5 g/dL (32.0-36.0) L 08/09/22 05:14 RDW 13.9 % (12.0-15.0) 08/09/22 05:14 Plt Count 325 10^3/uL (130-450) 08/09/22 05:14 MPV 8.6 fL (7.4-11.4) 08/09/22 05:14 Neut # (Auto) 4.4 10^3/uL (1.5-6.6) 08/09/22 05:14 Lymph # (Auto) 3.0 10^3/uL (1.5-3.5) 08/09/22 05:14 [place] # (Auto) 0.9 10^3/uL (0.0-1.0) 08/09/22 05:14 Eos # (Auto) 0.6 10^3/uL (0.0-0.7) 08/09/22 05:14 Baso # (Auto) 0.1 10^3/uL (0.0-0.1) 08/09/22 05:14 Absolute Nucleated RBC 0.00 x10^3/uL 08/09/22 05:14 Nucleated RBC % 0.0 /100WBC 08/09/22 05:14 Sodium 136 mmol/L (135-145) 08/09/22 05:14 Potassium 4.2 mmol/L (3.5-5.0) 08/09/22 05:14 Chloride 109 mmol/L (101-111) 08/09/22 05:14 Carbon Dioxide 23 mmol/L (21-32) 08/09/22 05:14 Anion Gap 4.0 (6-13) L 08/09/22 05:14 BUN 30 mg/dL (6-20) H 08/09/22 05:14 Creatinine 1.7 mg/dL (0.6-1.2) H 08/09/22 05:14 Estimated GFR (MDRD) 38 (>89) L 08/09/22 05:14 Glucose 97 mg/dL (70-100) 08/09/22 05:14 Calcium 8.5 mg/dL (8.5-10.3) 08/09/22 05:14 Total Bilirubin 0.3 mg/dL (0.2-1.0) 08/05/22 21:14 AST 20 IU/L (10-42) 08/05/22 21:14 ALT 14 IU/L (10-60) 08/05/22 21:14 Alkaline Phosphatase 60 IU/L (42-121) 08/05/22 21:14 B-Natriuretic Peptide 141 pg/mL (5-100) H 08/05/22 21:14 Total Protein 6.3 g/dL (6.7-8.2) L 08/05/22 21:14 Albumin 3.5 g/dL (3.2-5.5) 08/05/22 21:14 Globulin 2.8 g/dL (2.1-4.2) 08/05/22 21:14 Albumin/Globulin Ratio 1.3 (1.0-2.2) 08/05/22 21:14 Lipase 37 U/L (22-51) 08/05/22 21:14 Urine Color YELLOW 08/05/22 22:50 Urine Clarity CLOUDY (CLEAR) 08/05/22 22:50 Urine pH 6.0 PH (5.0-7.5) 08/05/22 22:50 Ur Specific [place] 1.015 (1.002-1.030) 08/05/22 22:50 Urine Protein 100 mg/dL (NEGATIVE) H 08/05/22 22:50 Urine Glucose (UA) NEGATIVE mg/dL (NEGATIVE) 08/05/22 22:50 Urine Ketones NEGATIVE mg/dL (NEGATIVE) 08/05/22 22:50 Urine Occult Blood LARGE (NEGATIVE) H 08/05/22 22:50 Urine Nitrite NEGATIVE (NEGATIVE) 08/05/22 22:50 Urine Bilirubin NEGATIVE (NEGATIVE) 08/05/22 22:50 Urine Urobilinogen 0.2 (NORMAL) E.U./dL (NORMAL) 08/05/22 22:50 Ur Leukocyte Esterase LARGE (NEGATIVE) H 08/05/22 22:50 Urine RBC 11-25 /HPF (0-5) H 08/05/22 22:50 Urine WBC >25 /HPF (0-3) H 08/05/22 22:50 Ur Squamous Epith Cells RARE Squamous (<= Few) 08/05/22 22:50 Urine Bacteria Many /HPF (None Seen) H 08/05/22 22:50 Ur Microscopic Review INDICATED 08/05/22 22:50 Urine Culture Comments INDICATED 08/05/22 22:50 SARS-CoV-2 (PCR) NOT DETECTED 08/06/22 06:05
[2022-08-09] MEDS ORDERED: QUEtiapine 25 MG TABLET PO SCH (21:00)
[2022-08-10] MEDS: PHENAZOPYRIDINE 100 MG TABLET PO SCH ×3 (06:00→21:58)
[2022-08-10 06:22] LABS: BASOPHILS # (AUTO) 0.1 10^3/uL (0.0-0.1); BASOPHILS % (AUTO) 1.1 %; EOSINOPHILS # (AUTO) 0.7 10^3/uL (0.0-0.7); EOSINOPHILS % (AUTO) 7.2 %; HGB - HEMOGLOBIN 8.4 g/dL (14.0-18.0); LYMPHOCYTES # (AUTO) 3.3 10^3/uL (1.5-3.5); LYMPHOCYTES % (AUTO) 34.4 %; MEAN CORPUSCULAR HEMOGLOBIN 28.6 pg (27.0-31.0); MEAN CORPUSCULAR HGB CONC 31.1 g/dL (32.0-36.0); MEAN CORPUSCULAR VOLUME 91.8 fL (80.0-94.0); MEAN PLATELET VOLUME 8.6 fL (7.4-11.4); MONOCYTES % (AUTO) 10.2 %; NEUTROPHILS # (AUTO) 4.5 10^3/uL (1.5-6.6); NEUTROPHILS % (AUTO) 46.7 %; PLT - PLATELET COUNT 360 10^3/uL (130-450); RED BLOOD COUNT 2.94 10^6/uL (4.70-6.10); RED CELL DISTRIBUTION WIDTH 13.9 % (12.0-15.0); WHITE BLOOD COUNT 9.7 x10^3/uL (4.8-10.8)
[2022-08-10 06:30] LABS: CALCIUM 8.9 mg/dL (8.5-10.3); CREATININE 1.7 mg/dL (0.6-1.2); POTASSIUM 4.2 mmol/L (3.5-5.0)
[2022-08-10] MEDS: LACTOBACILLUS RHAMNOSUS GG CAPSULE PO SCH (11:01)
[2022-08-10] MEDS: HEPARIN 5,000 UNIT/ML VIAL SUBQ SCH ×2 (11:01→21:58)
[2022-08-10] MEDS: levoFLOXacin 250 MG TABLET PO SCH (11:01)
[2022-08-10] MEDS: SERTRALINE 50 MG TABLET PO SCH (11:01)
[2022-08-10] MEDS: DONEPEZIL 5 MG TABLET PO SCH (11:01)
[2022-08-10] MEDS ORDERED: amLODIPine 5 MG TABLET PO ONE (14:22)
--- NOTE | 2022-08-10 20:02 | PROVIDER PROGRESS NOTE ---
Assessment/Plan - Problem List (1) Pyelonephritis Assessment/Plan: As per CT imaging at admission See plan in #2 (2) E coli UTI He did experience chills, and had elevated WBC at admission. Urine cx results are growing a albrecht-sensitive E coli. WBC has improved daily. It looks like no blood cx were done. We changed his empiric IV abx Ceftriaxone to Levaquin 750 mg. His dose is qod, due to CKD. Plan a 21 day total course of antibx for good prostate penetration. We started Pyridium for his c/o burning, which has helped He is on a probiotic orally as well (3) Hydronephrosis As per CT imaging. See discussion in #4 Plan Alcantara catheter to continue at time of DCh (4) Urinary retention Causing moderate bilateral hydronephrosis noted on CT. Pt had urinary urgency and frequency reported at admission. We inserted indwelling alcantara catheter and he will need to go home with this and have Urology management again. We started Flomax and Pyridium We asked for records from his Urologist for Hx (Dr. Flores, [facility]). These were received and reviewed: He required a Alcantara catheter last year and was on meds for BPH. He then underwent TURP for his BPH in 12/2021, which had benign pathology, but his postop visit in 02/2022 showed no improvement in his symptoms of urgency, frequency and urge incontinence. He was diagnosed with detrusor hyperactivityand impaired contractiltiy. Dr Flores ordered that the Aluzosin and Finasteride can be stopped. Pt was not willing to self-catheterize. Medication to calm down frequency and urgency will increase his urinary retention so that was contraindicated. He declined having an indwelling catheter inserted. He wanted to try a condom catheter for quality of life and was to let Dr Flores know his decision. It does not look like there was any more contact with Dr Flores after that. I called Dr Flores's office on 08/08 ([phone]), spoke to RN, who gave me his pager, which I beeped ([phone]), but I got no call back. With the at bedside, I presented to them both that his options are the following: Condom catheter probably is not enough as he needs drainage starting at the bladder. He can go home with a Alcantara catheter and needs Alcantara management with leg bag and draining the bag. He can have an indwelling catheter inserted into his bladder. He can have self catheterizations done several times per day. The said the decision is up to her because of his dementia. She wants him to get a chronic implanted suprapubic catheter. I planned to discuss this with Dr. Flores, but got no call back. I asked if our general surgeon can place this while he is here, and Dr Freitas said this is elective and should be placed by his Urologist. Will plan Alcantara to continue at time of DCh and needs to empty the bag (or hire morecaregivers to do Alcantara care) Will stop the Flomax, as per the Urol notes. (5) OTILIO on CKD Due to obstruction and creat is improving daily. Creat at admission was 2.0. Today creat is 1.7 (baseline is creat 1.4) IV fluids started and will decrease rate and eventually stop Alcantara to continue urinary drainage chronically now, is the plan Monitoring BMP daily Anticipate discharge tomorrow (6) Dementia with behavioral disturbance He is only oriented to self, not place or time. He cannot remember what was said 5 min previously. He gets up from chair here repeatedly, says he needs to urinate, wants to go to the bathroom, and needs to be reminded that he has a catheter and is helped back to sit. He feeds himself. He has not tried to pull out is Alcantara. Aricept was restarted, but the told me his Neurologist stopped it because it was not imprving his memory. Will stop the Aricept therefore. Recently the requested he get "something for sleep". He was given po Benadryl at 2100. He only fell asleep at 0300. The told me that he has severe insomnia because of his urinary sx. At home he gets up once an hour at night, and uses his walker to get to the bathroom which is only about 10 feet away but creates a lot of noise, so she no longer sleeps in that bedroom. We tried Seroquel 25 mg last night, and it over sedated him, as he slept until 1030 today. Will give Seroquel 12.5 mg tonight. I updated the on this and th entire plan, at bedside today. (7) Hx Depression Home meds restarted - Current Meds Current Meds: Current Medications Generic Name Dose Route Start Last Admin Trade Name Ken PRN Reason Stop Dose Admin Heparin Sodium (Porcine) 5,000 unit 08/06/22 09:00 08/10/22 11:01 Heparin 5,000 Unit/Ml Vial SUBQ 5,000 unit BID LUIS ANTONIO Administration Lactobacillus Rhamnosus 1 cap 08/06/22 11:00 08/10/22 11:01 Lactobacillus Rhamnosus Gg Capsule PO 1 cap DAILY LUIS ANTONIO Administration Levofloxacin 750 mg 08/08/22 09:00 08/10/22 11:01 Levofloxacin 250 Mg Tablet PO 750 mg Q48H LUIS ANTONIO Administration Phenazopyridine HCl 100 mg 08/06/22 14:00 08/10/22 13:56 Phenazopyridine 100 Mg Tablet PO 100 mg TID LUIS ANTONIO Administration Sertraline HCl 50 mg 08/07/22 09:00 08/10/22 11:01 Sertraline 50 Mg Tablet PO 50 mg DAILY LUIS ANTONIO Administration - Lab Result Fish Bone Diagrams: 08/10/22 06:03 08/10/22 06:03 - Additional Planning My Orders: My Active Orders 08/10/22 21:00 QUEtiapine [SEROquel] 12.5 mg PO QPM 08/10/22 23:00 Sodium Chloride 0.9% [Normal Saline 0.9%] 1,000 ml IV 83.333 mls/hr 08/11/22 05:00 BMP - BASIC METABOLIC PANEL [CHEM] DAILYLAB CBC - COMP BLD CT W/AUTO DIFF [HEME] DAILYLAB MAGNESIUM [CHEM] DAILYLAB Subjective - Subjective Patient Reports: Resting Comfortably, No Complaints Objective Vital Signs: Vital Signs - 24 hr 08/09/22 08/10/22 08/10/22 23:51 08:32 14:51 Temperature 36.4 C L 36.4 C L Heart Rate [ 65 69 66 Brachial] Respiratory 18 16 Rate Blood Pressure 167/73 H 179/65 H 124/55 L [Right Brachial artery] O2 Saturation 96 96 08/10/22 15:50 Temperature 36.7 C Heart Rate [ 68 Brachial] Respiratory 18 Rate Blood Pressure 103/86 H [Right Brachial artery] O2 Saturation 97 Oxygen O2 Source Room air I&O (Last 24 Hrs): Intake and Output Totals x24h 08/08/22 08/09/22 08/10/22 23:59 23:59 22:59 Intake Total 5288 9660.833 680 Output Total 3257 5733 0794 Balance -870 -983.456 -2332 General: Alert HEENT: Mucous membr. moist/pink Neck: Supple, No JVD Neuro: Alert, Disoriented, Non Focal Cardiovascular: Regular rate, No murmurs Respiratory: No respiratory distress, Breath sounds nml Abdomen: Normal bowel sounds, Soft Extremities: No tenderness/swelling, Other (1+ pre-tibial edema) - Results Results: Laboratory Results WBC 9.7 x10^3/uL (4.8-10.8) 08/10/22 06:03 RBC 2.94 10^6/uL (4.70-6.10) L 08/10/22 06:03 Hgb 8.4 g/dL (14.0-18.0) L 08/10/22 06:03 Hct 27.0 % (42.0-52.0) L 08/10/22 06:03 MCV 91.8 fL (80.0-94.0) 08/10/22 06:03 MCH 28.6 pg (27.0-31.0) 08/10/22 06:03 MCHC 31.1 g/dL (32.0-36.0) L 08/10/22 06:03 RDW 13.9 % (12.0-15.0) 08/10/22 06:03 Plt Count 360 10^3/uL (130-450) 08/10/22 06:03 MPV 8.6 fL (7.4-11.4) 08/10/22 06:03 Neut # (Auto) 4.5 10^3/uL (1.5-6.6) 08/10/22 06:03 Lymph # (Auto) 3.3 10^3/uL (1.5-3.5) 08/10/22 06:03 [place] # (Auto) 1.0 10^3/uL (0.0-1.0) 08/10/22 06:03 Eos # (Auto) 0.7 10^3/uL (0.0-0.7) 08/10/22 06:03 Baso # (Auto) 0.1 10^3/uL (0.0-0.1) 08/10/22 06:03 Absolute Nucleated RBC 0.00 x10^3/uL 08/10/22 06:03 Nucleated RBC % 0.0 /100WBC 08/10/22 06:03 Sodium 138 mmol/L (135-145) 08/10/22 06:03 Potassium 4.2 mmol/L (3.5-5.0) 08/10/22 06:03 Chloride 110 mmol/L (101-111) 08/10/22 06:03 Carbon Dioxide 22 mmol/L (21-32) 08/10/22 06:03 Anion Gap 6.0 (6-13) 08/10/22 06:03 BUN 27 mg/dL (6-20) H 08/10/22 06:03 Creatinine 1.7 mg/dL (0.6-1.2) H 08/10/22 06:03 Estimated GFR (MDRD) 38 (>89) L 08/10/22 06:03 Glucose 99 mg/dL (70-100) 08/10/22 06:03 Calcium 8.9 mg/dL (8.5-10.3) 08/10/22 06:03 Total Bilirubin 0.3 mg/dL (0.2-1.0) 08/05/22 21:14 AST 20 IU/L (10-42) 08/05/22 21:14 ALT 14 IU/L (10-60) 08/05/22 21:14 Alkaline Phosphatase 60 IU/L (42-121) 08/05/22 21:14 B-Natriuretic Peptide 141 pg/mL (5-100) H 08/05/22 21:14 Total Protein 6.3 g/dL (6.7-8.2) L 08/05/22 21:14 Albumin 3.5 g/dL (3.2-5.5) 08/05/22 21:14 Globulin 2.8 g/dL (2.1-4.2) 08/05/22 21:14 Albumin/Globulin Ratio 1.3 (1.0-2.2) 08/05/22 21:14 Lipase 37 U/L (22-51) 08/05/22 21:14 Urine Color YELLOW 08/05/22 22:50 Urine Clarity CLOUDY (CLEAR) 08/05/22 22:50 Urine pH 6.0 PH (5.0-7.5) 08/05/22 22:50 Ur Specific [place] 1.015 (1.002-1.030) 08/05/22 22:50 Urine Protein 100 mg/dL (NEGATIVE) H 08/05/22 22:50 Urine Glucose (UA) NEGATIVE mg/dL (NEGATIVE) 08/05/22 22:50 Urine Ketones NEGATIVE mg/dL (NEGATIVE) 08/05/22 22:50 Urine Occult Blood LARGE (NEGATIVE) H 08/05/22 22:50 Urine Nitrite NEGATIVE (NEGATIVE) 08/05/22 22:50 Urine Bilirubin NEGATIVE (NEGATIVE) 08/05/22 22:50 Urine Urobilinogen 0.2 (NORMAL) E.U./dL (NORMAL) 08/05/22 22:50 Ur Leukocyte Esterase LARGE (NEGATIVE) H 08/05/22 22:50 Urine RBC 11-25 /HPF (0-5) H 08/05/22 22:50 Urine WBC >25 /HPF (0-3) H 08/05/22 22:50 Ur Squamous Epith Cells RARE Squamous (<= Few) 08/05/22 22:50 Urine Bacteria Many /HPF (None Seen) H 08/05/22 22:50 Ur Microscopic Review INDICATED 08/05/22 22:50 Urine Culture Comments INDICATED 08/05/22 22:50 SARS-CoV-2 (PCR) NOT DETECTED 08/06/22 06:05
[2022-08-10] MEDS ORDERED: SODIUM CHLORIDE 0.9% 1,000 ML IV ONE (21:17)
[2022-08-10] MEDS: QUEtiapine 25 MG TABLET PO SCH (21:58)
[2022-08-10] MEDS ORDERED: SODIUM CHLORIDE 0.9% 1,000 ML IV SCH (23:00)
[2022-08-11 06:33] LABS: BASOPHILS # (AUTO) 0.1 10^3/uL (0.0-0.1); EOSINOPHILS # (AUTO) 0.6 10^3/uL (0.0-0.7); EOSINOPHILS % (AUTO) 5.5 %; HCT - HEMATOCRIT 29.4 % (42.0-52.0); HGB - HEMOGLOBIN 9.2 g/dL (14.0-18.0); LYMPHOCYTES # (AUTO) 3.4 10^3/uL (1.5-3.5); LYMPHOCYTES % (AUTO) 32.3 %; MEAN CORPUSCULAR HGB CONC 31.3 g/dL (32.0-36.0); MEAN CORPUSCULAR VOLUME 92.7 fL (80.0-94.0); MEAN PLATELET VOLUME 8.4 fL (7.4-11.4); MONOCYTES % (AUTO) 9.4 %; NEUTROPHILS # (AUTO) 5.4 10^3/uL (1.5-6.6); NEUTROPHILS % (AUTO) 51.2 %; PLT - PLATELET COUNT 395 10^3/uL (130-450); RED BLOOD COUNT 3.17 10^6/uL (4.70-6.10); RED CELL DISTRIBUTION WIDTH 14.1 % (12.0-15.0); WHITE BLOOD COUNT 10.5 x10^3/uL (4.8-10.8)
[2022-08-11 06:40] LABS: CALCIUM 8.7 mg/dL (8.5-10.3); CREATININE 1.9 mg/dL (0.6-1.2); MAGNESIUM 2.3 mg/dL (1.7-2.8); POTASSIUM 4.1 mmol/L (3.5-5.0)
[2022-08-11] MEDS: PHENAZOPYRIDINE 100 MG TABLET PO SCH ×3 (06:40→21:45)
[2022-08-11] MEDS: LACTOBACILLUS RHAMNOSUS GG CAPSULE PO SCH (08:42)
[2022-08-11] MEDS: SERTRALINE 50 MG TABLET PO SCH (08:42)
[2022-08-11] MEDS: HEPARIN 5,000 UNIT/ML VIAL SUBQ SCH ×2 (08:42→21:45)
[2022-08-11] MEDS ORDERED: amLODIPine 5 MG TABLET PO SCH (09:00)
[2022-08-11] MEDS: SODIUM CHLORIDE 0.9% 1,000 ML IV SCH ×2 (09:38→18:40)
[2022-08-11] MEDS: polyethylene glycoL 3350 17 GM PACKET PO SCH (13:21)
--- NOTE | 2022-08-11 16:21 | CT Report ---
PROCEDURE: ABDOMEN/PELVIS WO INDICATIONS: Worsened creat, had urin retn, eval for obstr TECHNIQUE: Noncontrast 5 mm thick sections acquired from the diaphragms to the symphysis. 5 mm coronal and sagi ttal reformats were then performed. For radiation dose reduction, the following was used: automated exposure control, adjustment of mA and/or kV according to patient size. COMPARISON: 08/06/2022 CT examination FINDINGS: Image quality: Excellent. ABDOMEN: Lung bases: Small bilateral pleural effusions are present. Mild dependent bibasilar atelectasis is pr esent. Heart size is normal. Solid organs: Liver and spleen are normal in size. Gallbladder is within normal limits Pancreas is normal in contours. No adrenal nodules. Kidneys are normal in size. No nephrolithiasis. Decreased, mild bilateral hydronephrosis and ureteral dilatation. Peritoneum and bowel: Moderate amount stool within the rectum. Unenhanced bowel loops demonstrate ot herwise normal wall thickness and caliber. No free fluid or air. Appendix is not seen. No evidence of appendicitis. Nodes and vessels: No retroperitoneal or mesenteric adenopathy by size criteria. Aorta and inferior vena cava are normal in caliber. Miscellaneous: No ventral hernias. PELVIS: Genitourinary: A Patel catheter is present. Urinary bladder is decompressed. Miscellaneous: No inguinal hernias or adenopathy. Bones: No suspicious bony lesions. No vertebral body compression fractures. IMPRESSION: 1. Decreased, mild bilateral hydronephrosis. 2. Appendix not seen. No evidence of appendicitis. 3. Small bilateral pleural effusions. 4. Fecal impaction within the rectum. Reviewed by: Dwight Ybarra MD on 08/11/2022 4:20 PM PST Approved by: Dwight Ybarra MD on 08/11/2022 4:20 PM PST Station ID: [id number]
--- NOTE | 2022-08-11 17:12 | PROVIDER PROGRESS NOTE ---
Assessment/Plan - Problem List (1) Pyelonephritis Assessment/Plan: As per CT imaging at admission See plan in #2 (2) E coli UTI He did experience chills, and had elevated WBC at admission. Urine cx results are growing a albrecht-sensitive E coli. WBC has improved daily. It looks like no blood cx were done. We changed his empiric IV abx Ceftriaxone to Levaquin 750 mg. His dose is qod, due to CKD. Plan a 21 day total course of antibx for good prostate penetration. We started Pyridium for his c/o burning, which has helped He is on a probiotic orally as well (3) Hydronephrosis As per CT imaging. See discussion in #5 Plan Alcantara catheter to continue at time of DCh (4) OTILIO on CKD Due to obstruction and creat was improving daily then when iv fluids stopped yesterday, to watch him after a day of po hydration, creat veronika today (baseline is creat 1.4) IV fluids restarted today Will obtain repeat CT imaging Alcantara to continue urinary drainage chronically now, is the plan Monitoring BMP daily (5) Urinary retention Causing moderate bilateral hydronephrosis noted on CT. Pt had urinary urgency and frequency reported at admission. We inserted indwelling alcantara catheter and he will need to go home with this and have Urology management again. We started Flomax and Pyridium We asked for records from his Urologist for Hx (Dr. Flores, [facility]). These were received and reviewed: He required a Alcantara catheter last year and was on meds for BPH. He then underwent TURP for his BPH in 12/2021, which had benign pathology, but his postop visit in 02/2022 showed no improvement in his symptoms of urgency, frequency and urge incontinence. He was diagnosed with detrusor hyperactivityand impaired contractiltiy. Dr Flores ordered that the Aluzosin and Finasteride can be stopped. Pt was not willing to self-catheterize. Medication to calm down frequency and urgency will increase his urinary retention so that was contraindicated. He declined having an indwelling catheter inserted. He w anted to try a condom catheter for quality of life and was to let Dr Flores know his decision. It does not look like there was any more contact with Dr Flores after that. I called Dr Flores's office on 08/08 ([phone]), spoke to RN, who gave me his pager, which I beeped ([phone]), but I got no call back. With the at bedside, I presented to them both that his options are the following: Condom catheter probably is not enough as he needs drainage starting within the bladder. He can go home with a Alcantara catheter and needs Alcantara management with leg bag and draining the bag. He can have an indwelling catheter inserted into his bladder. He can have self catheterizations done several times per day. The said the decision is up to her because of his dementia. She wants him to get a chronic implanted suprapubic catheter. I planned to discuss this with Dr. Flores, but got no call back. I asked if our general surgeon can place this while he is here, and Dr Freitas said this is elective and should be placed by his Urologist. Will plan Alcantara to continue at time of DCh and needs to empty the bag (or hire morecaregivers to do Alcantara care) We stopped the Flomax, as per the Urol notes. (6) Fecal impaction CT imaging done today shows a solid fecal impaction in the rectum. Today he tried to have a BM and sat there for a long time with no result. Will order manual disimpaction. (7) Dementia with behavioral disturbance He is only oriented to self, not place or time. He cannot remember what was said 5 min previously. He gets up from chair here repeatedly, says he needs to urinate, wants to go to the bathroom, and needs to be reminded that he has a catheter and is helped back to sit. He feeds himself. He has not tried to pull out is Alcantara. Aricept was restarted, but the told me his Neurologist stopped it because it was not imprving his memory. Will stop the Aricept therefore. Recently the requested he get "something for sleep". He was given po Benadryl at 2100. He only fell asleep at 0300. The told me that he has severe insomnia because of his urinary sx. At home he gets up once an hour at night, and uses his walker to get to the bathroom which is only about 10 feet away but creates a lot of noise, so she no longer sleeps in that bedroom. We tried Seroquel 25 mg last night, and it over sedated him, as he slept until 1030 today. Will give Seroquel 12.5 mg tonight. I updated the on this and the entire plan, at bedside today. (8) Hx Depression Home meds restarted - Current Meds Current Meds: Current Medications Generic Name Dose Route Start Last Admin Trade Name Ken PRN Reason Stop Dose Admin Heparin Sodium (Porcine) 5,000 unit 08/06/22 09:00 08/11/22 08:42 Heparin 5,000 Unit/Ml Vial SUBQ 5,000 unit BID LUIS ANTONIO Administration Sodium Chloride 1,000 mls @ 83.333 mls/hr 08/11/22 10:00 08/11/22 09:38 Normal Saline 0.9% IV Not Given .Q12H LUIS ANTONIO Lactobacillus Rhamnosus 1 cap 08/06/22 11:00 08/11/22 08:42 Lactobacillus Rhamnosus Gg Capsule PO 1 cap DAILY LUIS ANTONIO Administration Levofloxacin 750 mg 08/08/22 09:00 08/10/22 11:01 Levofloxacin 250 Mg Tablet PO 750 mg Q48H LUIS ANTONIO Administration Phenazopyridine HCl 100 mg 08/06/22 14:00 08/11/22 13:21 Phenazopyridine 100 Mg Tablet PO 100 mg TID LUIS ANTONIO Administration Polyethylene Glycol 17 gm 08/11/22 13:00 08/11/22 13:21 Polyethylene Glycol 3350 17 Gm Packet PO 17 gm DAILY LUIS ANTONIO Administration Quetiapine Fumarate 12.5 mg 08/10/22 21:00 08/10/22 21:58 Quetiapine 25 Mg Tablet PO 12.5 mg QPM LUIS ANTONIO Administration Sertraline HCl 50 mg 08/07/22 09:00 08/11/22 08:42 Sertraline 50 Mg Tablet PO 50 mg DAILY LUIS ANTONIO Administration - Lab Result Fish Bone Diagrams: 08/11/22 06:20 08/11/22 06:20 - Additional Planning My Orders: My Active Orders 08/10/22 21:00 QUEtiapine [SEROquel] 12.5 mg PO QPM 08/11/22 10:00 Sodium Chloride 0.9% [Normal Saline 0.9%] 1,000 ml IV 83.333 mls/hr 08/11/22 13:00 polyethylene glycoL 3350 [Miralax] 17 gm PO DAILY 08/11/22 17:11 Disimpaction [RC] ONCE Subjective - Subjective Patient Reports: Resting Comfortably, Constipation Objective Vital Signs: Vital Signs - 24 hr 08/11/22 08/11/22 08/11/22 00:05 08:00 14:54 Temperature 37.1 C 36.5 C 36.6 C Heart Rate [ 67 74 72 Brachial] Respiratory 16 18 20 Rate Blood Pressure 145/62 H 139/59 H 154/62 H [Right Brachial artery] O2 Saturation 96 97 97 Oxygen O2 Source Room air I&O (Last 24 Hrs): Intake and Output Totals x24h 08/10/22 08/10/22 08/11/22 00:59 23:59 23:59 Intake Total 1847.553 Output Total 1200 Balance 647.553 General: Alert, No acute distress HEENT: EOMI, Mucous membr. moist/pink Neck: Supple, No JVD Neuro: Alert, Disoriented, Non Focal Cardiovascular: Regular rate, No murmurs Respiratory: No respiratory distress, Breath sounds nml Abdomen: Normal bowel sounds, Soft, No tenderness Extremities: No clubbing, Other (Trace pre-tibial edema) - Results Results: Laboratory Results WBC 10.5 x10^3/uL (4.8-10.8) 08/11/22 06:20 RBC 3.17 10^6/uL (4.70-6.10) L 08/11/22 06:20 Hgb 9.2 g/dL (14.0-18.0) L 08/11/22 06:20 Hct 29.4 % (42.0-52.0) L 08/11/22 06:20 MCV 92.7 fL (80.0-94.0) 08/11/22 06:20 MCH 29.0 pg (27.0-31.0) 08/11/22 06:20 MCHC 31.3 g/dL (32.0-36.0) L 08/11/22 06:20 RDW 14.1 % (12.0-15.0) 08/11/22 06:20 Plt Count 395 10^3/uL (130-450) 08/11/22 06:20 MPV 8.4 fL (7.4-11.4) 08/11/22 06:20 Neut # (Auto) 5.4 10^3/uL (1.5-6.6) 08/11/22 06:20 Lymph # (Auto) 3.4 10^3/uL (1.5-3.5) 08/11/22 06:20 [place] # (Auto) 1.0 10^3/uL (0.0-1.0) 08/11/22 06:20 Eos # (Auto) 0.6 10^3/uL (0.0-0.7) 08/11/22 06:20 Baso # (Auto) 0.1 10^3/uL (0.0-0.1) 08/11/22 06:20 Absolute Nucleated RBC 0.00 x10^3/uL 08/11/22 06:20 Nucleated RBC % 0.0 /100WBC 08/11/22 06:20 Sodium 134 mmol/L (135-145) L 08/11/22 06:20 Potassium 4.1 mmol/L (3.5-5.0) 08/11/22 06:20 Chloride 107 mmol/L (101-111) 08/11/22 06:20 Carbon Dioxide 21 mmol/L (21-32) 08/11/22 06:20 Anion Gap 6.0 (6-13) 08/11/22 06:20 BUN 31 mg/dL (6-20) H 08/11/22 06:20 Creatinine 1.9 mg/dL (0.6-1.2) H 08/11/22 06:20 Estimated GFR (MDRD) 34 (>89) L 08/11/22 06:20 Glucose 111 mg/dL (70-100) H 08/11/22 06:20 Calcium 8.7 mg/dL (8.5-10.3) 08/11/22 06:20 Magnesium 2.3 mg/dL (1.7-2.8) 08/11/22 06:20 Total Bilirubin 0.3 mg/dL (0.2-1.0) 08/05/22 21:14 AST 20 IU/L (10-42) 08/05/22 21:14 ALT 14 IU/L (10-60) 08/05/22 21:14 Alkaline Phosphatase 60 IU/L (42-121) 08/05/22 21:14 B-Natriuretic Peptide 141 pg/mL (5-100) H 08/05/22 21:14 Total Protein 6.3 g/dL (6.7-8.2) L 08/05/22 21:14 Albumin 3.5 g/dL (3.2-5.5) 08/05/22 21:14 Globulin 2.8 g/dL (2.1-4.2) 08/05/22 21:14 Albumin/Globulin Ratio 1.3 (1.0-2.2) 08/05/22 21:14 Lipase 37 U/L (22-51) 08/05/22 21:14 Urine Color YELLOW 08/05/22 22:50 Urine Clarity CLOUDY (CLEAR) 08/05/22 22:50 Urine pH 6.0 PH (5.0-7.5) 08/05/22 22:50 Ur Specific [place] 1.015 (1.002-1.030) 08/05/22 22:50 Urine Protein 100 mg/dL (NEGATIVE) H 08/05/22 22:50 Urine Glucose (UA) NEGATIVE mg/dL (NEGATIVE) 08/05/22 22:50 Urine Ketones NEGATIVE mg/dL (NEGATIVE) 08/05/22 22:50 Urine Occult Blood LARGE (NEGATIVE) H 08/05/22 22:50 Urine Nitrite NEGATIVE (NEGATIVE) 08/05/22 22:50 Urine Bilirubin NEGATIVE (NEGATIVE) 08/05/22 22:50 Urine Urobilinogen 0.2 (NORMAL) E.U./dL (NORMAL) 08/05/22 22:50 Ur Leukocyte Esterase LARGE (NEGATIVE) H 08/05/22 22:50 Urine RBC 11-25 /HPF (0-5) H 08/05/22 22:50 Urine WBC >25 /HPF (0-3) H 08/05/22 22:50 Ur Squamous Epith Cells RARE Squamous (<= Few) 08/05/22 22:50 Urine Bacteria Many /HPF (None Seen) H 08/05/22 22:50 Ur Microscopic Review INDICATED 08/05/22 22:50 Urine Culture Comments INDICATED 08/05/22 22:50 SARS-CoV-2 (PCR) NOT DETECTED 08/06/22 06:05
[2022-08-11] MEDS: QUEtiapine 25 MG TABLET PO SCH (21:45)
[2022-08-12] MEDS: PHENAZOPYRIDINE 100 MG TABLET PO SCH (06:13)
[2022-08-12] MEDS: SODIUM CHLORIDE 0.9% 1,000 ML IV SCH (06:46)
[2022-08-12 07:48] LABS: CALCIUM 8.5 mg/dL (8.5-10.3); CREATININE 1.9 mg/dL (0.6-1.2); POTASSIUM 4.2 mmol/L (3.5-5.0)
[2022-08-12 08:32] VITALS: BP 154/53
[2022-08-12] MEDS: LACTOBACILLUS RHAMNOSUS GG CAPSULE PO SCH (08:38)
[2022-08-12] MEDS: SERTRALINE 50 MG TABLET PO SCH (08:38)
[2022-08-12] MEDS: polyethylene glycoL 3350 17 GM PACKET PO SCH (08:38)
[2022-08-12] MEDS: HEPARIN 5,000 UNIT/ML VIAL SUBQ SCH (08:39)
--- NOTE | 2022-08-12 08:39 | DISCHARGE SUMMARY ---
Discharge Summary Admit Date: 08/06/22 Discharge Date: 08/12/22 Discharging Provider: Jade Coe MD Primary Care Provider: astrid Rascon MD [facility] Code Status: Attempt Resuscitation Condition at Discharge: Stable Discharge Disposition: 01 Home, Self Care - DIAGNOSES Discharge Diagnoses with Status of Each Condition: 1. Pyelonephritis 2. E. coli UTI 3. Hydronephrosis 4. Acute kidney injury superimposed on chronic kidney disease 4. Urinary retention due to benign prostatic hypertrophy 5. Impacted feces 6. Dementia with behavioral disturbance 7. History of depression - HPI History of Present Illness: Mr Avila is an 87 yo M with hx dementia, BPH, hx frequent UTIs, status post urologic intervention with Dr. Flores ([facility]) in December 2021, now no longer requiring alcantara cathether. Presnts to ER w c/o "not feeling well". Pt is hard of hearing, does not have hearing aids. Hx obtained from his at bedside. However pt was w caregiver during the day, she saw him in the evening and after dinner he c/o not feeling well, he had chills. He also had back pain. She also states he keeps wanting to urinate but only has a few drops at a time. No blood in urine. Unable to obtain further ROS. - Past Medical History Cardiovascular: reports: High cholesterol Respiratory: reports: None Neuro: reports: Dementia Endocrine/Autoimmune: reports: None GI: reports: Chronic constipation : reports: Benign prostate hypertrophy HEENT: reports: None Psych: reports: None Musculoskeletal: reports: None Derm: reports: None MRSA Hx?: Yes - Past Surgical History General: reports: Appendectomy Ortho: reports: Knee replacement, Other - CONSULTS | PROCEDURES Procedures: Chest x-ray was without acute cardiopulmonary disease. Abdomen pelvis CT was done on August 06 and August 11. The first 1 had bila teral moderate hydronephrosis extending to the ureterovesicular junctions with associated perinephric and perirenal fat stranding suggesting sequela of UTI. No discrete obstructing stones or masses were visualized. He had mild bladder wall thickening and spiculization. The second CT had a Alcantara catheter that was present and a urinary bladder that was decompressed. He now had decreased hydronephrosis that was mild. Urine culture with pansensitive E. coli - HOSPITAL COURSE Hospital Course: On admission he did have chills and elevated white cell count. Urine culture grew out pansensitive E. coli. Once he was on treatment, he improved and had no further fever, and gradually reduced white cell count. IV ceftriaxone was changed to Levaquin 750. Due to creatinine clearance is 750 was changed from daily to every other day. He will need a total of 21 days of treatment. We were worried about obstruction causing UTI and a CT of the abdomen showed moderate bilateral hydronephrosis. We inserted an indwelling Alcantara catheter and he will need to go home on that until he is seen by urology. He is followed by Dr. Flores, at the [facility]. We did make [address] Flores and left messages but did not receive a phone call back by the time of discharge. He did have fecal impaction which was manually disimpacted. Dementia with behav ioral disturbance was a mild problem here. We started him on Seroquel with reduction in his agitation. He was discharged in stable condition. Temperature was 36.3. Heart rate 63. Blood pressure 154/53. Respirations 16 and he is 95% on room air. He is a pleasant, cooperative, completely confused elderly gentleman. Neck was supple. Lungs were clear. Regular rate and rhythm. Abdomen had normal bowel sounds, nontender. Extremities had trace edema, 1+, pitting. He is very hard of hearing, and can get very confused but is following commands today. Able to feed himself. Greater than 30 minutes was spent coordinating discharge. Patient is asked to follow-up with his primary care provider and his urologist. He is is his power of deputy prosecuting attorney and advocate and will be making these things happen because of his dementia. - ALLERGIES Allergies/Adverse Reactions: Allergies Allergy/AdvReac Type Severity Reaction Status Date / Time No Known Drug Allergies Allergy Verified 08/05/22 20:22 - MEDICATIONS Home Medications: Ambulatory Orders Medication Instructions Recorded Confirmed Sertraline [Zoloft] 50 mg PO DAILY 08/06/22 08/06/22 QUEtiapine [SEROquel] 12.5 mg PO QPM #15 tab 08/12/22 levoFLOXacin [Levaquin] 750 mg PO Q48H #27 tab 08/12/22 - LABS Result Diagrams: 08/11/22 06:20 08/12/22 07:33
[2022-08-12] MEDS: levoFLOXacin 250 MG TABLET PO SCH (08:40)
--- NOTE | 2022-08-12 08:43 | Discharge Plan ---
Discharge Plan Problem Reviewed?: Yes Disposition: Home, Self Care Condition: Stable Prescriptions: levoFLOXacin [Levaquin] 750 mg PO Q48H #27 tab QUEtiapine [SEROquel] 12.5 mg PO QPM #15 tab Diet: Regular Activity Restrictions: Activity as Tolerated Shower Restrictions: No Driving Restrictions: No Health Concerns: You have a history of previous bladder dysfunction resulting in severe urgency, frequency. You see a urologist in [place]. You are hard of hearing, and have memory loss and your is her primary caregiver. After dinner the night before you were admitted you were not feeling well and you were complaining of chills, back pain. Your urgency and frequency became worse. You were brought to the emergency room and we found you to have bilateral blockage of the ureters the drain your kidneys into your bladder. You also had a urinary tract infection with a bacteria called E. coli. You have continued to have bladder p roblems during her stay. We have tried to call your urologist a couple of times but have not managed to get a phone call back. You are being discharged with a chronic indwelling Patel catheter. Plan of Treatment: 1. You will need several more days of antibiotic therapy to completely treat your bladder and prostate. Because of your kidney insufficiency you can only t armand the antibiotic every other day. Please complete your antibiotic course until all antibiotics have been taken. Do not skip days. 2. Please take an [id number] probiotic for the next month. Do it on a daily basis. 3. Please see your primary care provider in follow-up for continuity of care. We have Dr. Luis Burton listed as your primary care provider as part of [facility]. 4. Please see your urologist Dr. Flores from [facility]. He will need to decide what type of permanent indwelling catheter you need. Assessment: Patient has dementia, and is his primary caregiver. She is his POA and advocate and is aware of treatment plans and promises to follow through. No Smoking: If you smoke, Please STOP! Call for help.
== END 2022-08-12 14:30 | disposition home or self-care (01) | DRG 690 ==
LOC: ED 20:09 → MS2 08-06 02:33
PROVIDERS: ADMIT Internal Medicine; ATTEND Specialist
DX: N12 Tubulo-interstitial nephritis, not specified as acute or chronic (principal); F03.918 Unspecified dementia, unspecified severity, with other behavioral disturbance; N40.0 Benign prostatic hyperplasia without lower urinary tract symptoms; N13.30 Unspecified hydronephrosis; F03.90 Unspecified dementia, unspecified severity, without behavioral disturbance, psychotic disturbance, mood disturbance, and anxiety; B96.20 Unspecified Escherichia coli [E. coli] as the cause of diseases classified elsewhere; R06.00 Dyspnea, unspecified; N17.9 Acute kidney failure, unspecified; N18.9 Chronic kidney disease, unspecified; N40.1 Benign prostatic hyperplasia with lower urinary tract symptoms; R33.8 Other retention of urine; E78.00 Pure hypercholesterolemia, unspecified; K59.09 Other constipation; H91.90 Unspecified hearing loss, unspecified ear; F32.A Depression, unspecified; R39.11 Hesitancy of micturition; Z79.899 Other long term (current) drug therapy
CPT/HCPCS: 36415; 71045; 74176; 80048; 80053; 81001; 83690; 83735; 83880; 85025; 87086; 87181; 87635; 96365; 99284; 99285; A9270; 81003

== ENCOUNTER 2022-09-19 12:03 | Emergency (ER) | payer MEDICARE, OTHER ==
[2022-09-19 12:14] VITALS: BP 120/48
[2022-09-19 12:34] LABS: BILIRUBIN,URINE NEGATIVE (NEGATIVE); GLUCOSE, URINE (UA) NEGATIVE (NEGATIVE); KETONES,URINE (UA) NEGATIVE (NEGATIVE); LEUKOCYTE ESTERASE, URINE LARGE (NEGATIVE); NITRITE,URINE NEGATIVE (NEGATIVE); OCCULT BLOOD,URINE LARGE (NEGATIVE); PROTEIN,URINE 100 mg/dL (NEGATIVE); UROBILINOGEN,URINE 0.2 (NORMAL) E.U./dL (NORMAL)
[2022-09-19 12:42] LABS: CLARITY,URINE CLOUDY (CLEAR)
[2022-09-19 12:51] LABS: BACTERIA,URINE None Seen /HPF (None Seen); RBC,URINE TNTC /HPF (0-5); SQUAMOUS EPITHELIAL CELL,UR NONE SEEN (<= Few); WBC,URINE >25 /HPF (0-3)
[2022-09-19] MEDS ORDERED: cefTRIAXone 1 GM VIAL IM STA (13:05)
[2022-09-19] MEDS ORDERED: LIDOCAINE 1% 2 ML VIAL MC ONE (13:05)
--- NOTE | 2022-09-19 13:08 | ED Physician Documentation ---
History of Present Illness - Stated complaint Stated Complaint: BLOOD ON URINE - Chief complaint Chief Complaint: UTI - History obtained from History obtained from: Family, Caregiver - Additonal information Additional information: 87-year-old gentleman with history of TURP and recurrent urinary retention. He has an indwelling Patel now is being planned for suprapubic catheter. Developed shaking chills last night and a fever to 102 with increased sediment in the catheter. No fevers today. He is demented so history is from the caregiver and the are at the bedside. Review of Systems Unable to obtain: Dementia PD PAST MEDICAL HISTORY - Past Medical History Cardiovascular: High cholesterol Respiratory: None Neuro: Dementia Endocrine/Autoimmune: None GI: Chronic constipation : Benign prostate hypertrophy, Chronic bladder infection HEENT: None Psych: None Musculoskeletal: None Derm: None - Past Surgical History Past Surgical History: Yes General: Appendectomy Ortho: Knee replacement, Other - Present Medications Home Medications: Ambulatory Orders Medication Instructions Recorded Confirmed Sertraline [Zoloft] 50 mg PO DAILY 08/06/22 08/06/22 QUEtiapine [SEROquel] 12.5 mg PO QPM #15 tab 08/12/22 levoFLOXacin [Levaquin] 750 mg PO Q48H #27 tab 08/12/22 Ciprofloxacin HCl [Cipro] 500 mg PO BID #28 tablet 09/19/22 - Allergies Allergies/Adverse Reactions: Allergies Allergy/AdvReac Type Severity Reaction Status Date / Time No Known Drug Allergies Allergy Verified 09/19/22 12:14 - Social History Does the pt smoke?: No Smoking Status: Current every day smoker Does the pt drink ETOH?: No Does the pt have substance abuse?: No - Immunizations Immunizations are current?: Yes - POLST Patient has POLST: No PD ED PE NORMAL - Vitals Vital signs reviewed: Yes - General General: No acute distress, Other (He is alert and oriented to person and cooperative but demented) - Abdomen Abdomen: Normal bowel sounds, Soft, Non tender - Back Back: No CVA TTP - Derm Derm: Normal color, Warm and dry Results - Vitals Vitals: Vital Signs - 24 hr 09/19/22 12:09 Temperature 36.9 C Heart Rate 61 Respiratory 16 Rate Blood Pressure 120/48 L O2 Saturation 100 Oxygen O2 Source Room air - Labs Labs: Laboratory Tests 09/19/22 12:10 Urine Color YELLOW Urine Clarity CLOUDY Urine pH 6.0 Ur Specific [place] 1.020 Urine Protein 100 H Urine Glucose (UA) NEGATIVE Urine Ketones NEGATIVE Urine Occult Blood LARGE H Urine Nitrite NEGATIVE Urine Bilirubin NEGATIVE Urine Urobilinogen 0.2 (NORMAL) Ur Leukocyte Esterase LARGE H Urine RBC TNTC H Urine WBC >25 H Ur Squamous Epith Cells NONE SEEN Urine Bacteria None Seen Ur Microscopic Review INDICATED Urine Culture Comments INDICATED PD Medical Decision Making - ED course ED course: 87-year-old gentleman with shaking chills and fever last night with positive urinalysis and complaints of back pain. Given the above he likely has an infection and will treat here with Rocephin 1 g IM and Cipro home-going pending cultures. We will replace his Patel. Departure - Departure Disposition: 01 Home, Self Care Clinical Impression: Pyelonephritis Condition: Good Record reviewed to determine appropriate education?: Yes Instructions: ED UTI Pyelonephritis Male Prescriptions: Ciprofloxacin HCl [Cipro] 500 mg PO BID #28 tablet Comments: Follow-up with urology as scheduled. We will culture your urine, the results should be done in 48-72 hours. If an antibiotic change is necessary we will call you. Return if worse in the meantime, especially if you develop increasing flank pain, or cannot keep down the medication.
== END 2022-09-19 14:57 | disposition home or self-care (01) ==
LOC: ED 12:03
DX: N12 Tubulo-interstitial nephritis, not specified as acute or chronic (principal); F17.200 Nicotine dependence, unspecified, uncomplicated
CPT/HCPCS: 81001; 81003; 87086; 96372; 99281; 99283

== ENCOUNTER 2022-09-24 15:56 | Emergency (ER) | payer MEDICARE, OTHER ==
[2022-09-24 16:14] VITALS: BP 136/67
--- NOTE | 2022-09-24 16:31 | ED Physician Documentation ---
PD HPI MALE - Stated complaint Stated Complaint: CATH ISSUE - Chief complaint Chief Complaint: Abd Pain - History obtained from History obtained from: Family - Additional information Additional information: 87-year-old gentleman who chronically has a Patel catheter had it replaced recently. It sounds like it was a difficult replacement and they had to use a smaller size catheter than usual. Now he is leaking around the catheter. Review of Systems Constitutional: denies: Fever, Chills Cardiac: reports: Reviewed and negative Respiratory: reports: Reviewed and negative PD PAST MEDICAL HISTORY - Past Medical History Cardiovascular: High cholesterol Respiratory: None Neuro: Dementia Endocrine/Autoimmune: None GI: Chronic constipation : Benign prostate hypertrophy, Chronic bladder infection HEENT: None Psych: None Musculoskeletal: None Derm: None - Past Surgical History Past Surgical History: Yes General: Appendectomy Ortho: Knee replacement, Other - Present Medications Home Medications: Ambulatory Orders Medication Instructions Recorded Confirmed Sertraline [Zoloft] 50 mg PO DAILY 08/06/22 08/06/22 QUEtiapine [SEROquel] 12.5 mg PO QPM #15 tab 08/12/22 levoFLOXacin [Levaquin] 750 mg PO Q48H #27 tab 08/12/22 Ciprofloxacin HCl [Cipro] 500 mg PO BID #28 tablet 09/19/22 - Allergies Allergies/Adverse Reactions: Allergies Allergy/AdvReac Type Severity Reaction Status Date / Time No Known Drug Allergies Allergy Verified 09/24/22 16:14 - Social History Does the pt smoke?: No Smoking Status: Never smoker Does the pt drink ETOH?: No Does the pt have substance abuse?: No - Immunizations Immunizations are current?: Yes - POLST Patient has POLST: No PD ED PE NORMAL - Vitals Vital signs reviewed: Yes - General General: Alert and oriented X 3, No acute distress - Abdomen Abdomen: Soft, Non tender, Other (Patel catheter in place but positive bladder scan with suprapubic tenderness.) - Back Back: No CVA TTP, No spinal TTP - Derm Derm: Normal color, Warm and dry - Extremities Extremities: No edema, No calf tenderness / cord - Neuro Neuro: Alert and oriented X 3, Normal speech Results - Vitals Vitals: Vital Signs - 24 hr 09/24/22 16:08 Temperature 36.6 C Heart Rate 62 Respiratory 16 Rate Blood Pressure 136/67 H O2 Saturation 99 Oxygen O2 Source Room air PD Medical Decision Making - ED course ED course: I personally replaced his Patel catheter with a 16 Yi catheter, after which it was draining freely. Departure - Departure Disposition: 01 Home, Self Care Clinical Impression: Patel catheter problem Qualifiers: Encounter type: initial encounter Qualified Code(s): T83.9XXA - Unspecified complication of genitourinary prosthetic device, implant and graft, initial encounter Condition: Good Record reviewed to determine appropriate education?: Yes Instructions: ED Catheter Care Patel
== END 2022-09-24 16:55 | disposition home or self-care (01) ==
LOC: ED 15:56
DX: T83.031A Leakage of indwelling urethral catheter, initial encounter (principal)
CPT/HCPCS: 51702; 99281

== ENCOUNTER 2023-01-17 03:14 | Outpatient (CLI) | payer MEDICARE, OTHER | END 2023-01-17 03:15 | disposition EMS.NT | LOC: EMS 03:14 | DX: Z03.89 Encounter for observation for other suspected diseases and conditions ruled out (principal) ==

== ENCOUNTER 2023-01-26 02:26 | Outpatient (CLI) | payer MEDICARE, OTHER | END 2023-01-26 02:27 | disposition EMS.NT | LOC: EMS 02:26 | DX: Z03.89 Encounter for observation for other suspected diseases and conditions ruled out (principal) ==

== ENCOUNTER 2023-01-26 10:36 | Emergency (ER) | payer MEDICARE, OTHER ==
--- NOTE | 2023-01-26 11:21 | ED Physician Documentation ---
PD HPI MALE - Stated complaint Stated Complaint: MALE - Chief complaint Chief Complaint: General - History obtained from History obtained from: Patient (minimal info from patient due to dementia.), Family (spouse) - History of Present Illness Timing - onset: Last night Timing - duration: Hours (The patient's states he stumbled and fell last night and had a pole on the catheter. He had some mild bleeding from the suprapubic site. He then had no urine coming from the catheter. He did have some trickling amounts from the urethra with some blood there. He feels uncomfortable lower abd) Timing - details: Abrupt onset (overnight) Associated symptoms: Unable to urinate PD HPI MALE CONTRIB FACTORS: Indwelling catheter (suprapubic) Similar symptoms before: Has not had sx before Review of Systems Constitutional: denies: Fever GI: denies: Vomiting, Diarrhea Neurologic: denies: Altered mental status, Head injury PD PAST MEDICAL HISTORY - Past Medical History Cardiovascular: High cholesterol Respiratory: None Neuro: Dementia Endocrine/Autoimmune: None GI: Chronic constipation : Benign prostate hypertrophy, Chronic bladder infection HEENT: None Psych: None Musculoskeletal: None Derm: None - Past Surgical History Past Surgical History: Yes General: Appendectomy Ortho: Knee replacement, Other - Present Medications Home Medications: Ambulatory Orders Medication Instructions Recorded Confirmed Sertraline [Zoloft] 50 mg PO DAILY 08/06/22 01/26/23 QUEtiapine [SEROquel] 12.5 mg PO QPM #15 tab 08/12/22 01/26/23 LORazepam [Loreev Xr] 1 mg PO HS 01/26/23 01/26/23 QUEtiapine [SEROquel] 25 - 50 mg PO HS 01/26/23 01/26/23 - Allergies Allergies/Adverse Reactions: Allergies Allergy/AdvReac Type Severity Reaction Status Date / Time No Known Drug Allergies Allergy Verified 01/26/23 10:43 - Social History Does the pt smoke?: No Smoking Status: Never smoker Does the pt drink ETOH?: No Does the pt have substance abuse?: No - Immunizations Immunizations are current?: Yes - POLST Patient has POLST: No PD ED PE NORMAL - Vitals Vital signs reviewed: Yes - General General: Well developed/nourished, Other (he seems to have lower abd fullness and tender. ) - HEENT HEENT: Atraumatic - Neck Neck: Supple, no meningeal sign, No bony TTP - Abdomen Abdomen: Soft - Male Male : Other (He has a suprapubic catheter in place. There is a mild amount of blood at the skin opening. No signs of infection. The catheter appears in place but is not having any drainage. The bladder area feels full. The penis and meatus appear normal.) - Derm Derm: Normal color, Warm and dry Results - Vitals Vitals: Vital Signs - 24 hr 01/26/23 01/26/23 01/26/23 10:40 11:19 13:16 Temperature 36.0 C L Heart Rate 60 55 L 58 L Respiratory 20 16 16 Rate Blood Pressure 132/68 H 158/85 H 158/69 H O2 Saturation 98 99 100 Oxygen O2 Source Room air PD Medical Decision Making - ED course Complexity details: considered differential, d/w patient ED course: Consideration of whether the suprapubic catheter got dislodged when he fell. There is some blood around the skin. It appears in place but is not draining. I deflated the balloon and advanced it slightly and reinflated and urine came out. Irrigation of the bladder was easy and it returned a slightly cloudy urine without any clots. Subsequent bladder scanner showed only 10 mL residual consistent with operational catheter at this time. Departure - Departure Disposition: 01 Home, Self Care Clinical Impression: Suprapubic catheter dysfunction Qualifiers: Encounter type: initial encounter Qualified Code(s): T83.010A - Breakdown (mechanical) of cystostomy catheter, initial encounter Condition: Stable Record reviewed to determine appropriate education?: Yes Follow-Up: CHRISTIANO OREILLY DO [Primary Care Provider] - Comments: The catheter tip may have been dislodged when he fell. I repositioned the catheter and it seems to be draining appropriately now. We were able to irrigate it in its emptying subsequently as well. After this manipulation, the bladder scanner shows only 10 mL of urine in the bladder so it does seem to be draining appropriately. Follow-up with your urologist as needed. I would anticipate the urine draining out of the suprapubic catheter as normal now and the should not get it from the urethra/penis. I assume it was coming out that way because of over pressuring of the bladder and not being able to come out the suprapubic area. Discharge Date/Time: 01/26/23 13:17
[2023-01-26 13:17] VITALS: BP 158/69
== END 2023-01-26 13:17 | disposition home or self-care (01) ==
LOC: ED 10:36
DX: T83.010A Breakdown (mechanical) of cystostomy catheter, initial encounter (principal); E78.00 Pure hypercholesterolemia, unspecified; Z79.899 Other long term (current) drug therapy
CPT/HCPCS: 51798; 99283

== ENCOUNTER 2023-02-16 11:46 | Emergency (ER) | payer MEDICARE, OTHER ==
--- NOTE | 2023-02-16 12:16 | ED Physician Documentation ---
History of Present Illness - Stated complaint Stated Complaint: MALE GI,ABD PX - Chief complaint Chief Complaint: Abd Pain - Additonal information Additional information: 87-year-old male was brought into the emergency department by his and caregiver for evaluation of constipation. This gentleman is being admitted to hospice services tomorrow for end-stage renal disease. He also has dementia and is not able to participate meaningfully in the history. and caregiver report that they have been giving him prune juice, MiraLAX as well as stool softeners with no bowel movement for the last 5 days. He is continuing to eat and drink. No fevers. Patient reports to me that his" asshole" hurts. The family and caregiver would like only emergency department assistance with defecation. They report they do not have the supplies or devices at home in order to give him an enema and ensure that he can make it to the toilet on time. Review of Systems Unable to obtain: Dementia, Other (Per caregiver and ) Cardiac: reports: Reviewed and negative Respiratory: reports: Reviewed and negative GI: reports: Constipation PD PAST MEDICAL HISTORY - Past Medical History Cardiovascular: High cholesterol Respiratory: None Neuro: Dementia Endocrine/Autoimmune: None GI: Chronic constipation : Benign prostate hypertrophy, Chronic bladder infection HEENT: None Psych: None Musculoskeletal: None Derm: None - Past Surgical History Past Surgical History: Yes General: Appendectomy Ortho: Knee replacement, Other - Present Medications Home Medications: Ambulatory Orders Medication Instructions Recorded Confirmed Sertraline [Zoloft] 50 mg PO DAILY 08/06/22 02/16/23 LORazepam [Loreev Xr] 0.5 mg PO HS 01/26/23 02/16/23 QUEtiapine [SEROquel] 50 mg PO HS 01/26/23 02/16/23 - Allergies Allergies/Adverse Reactions: Allergies Allergy/AdvReac Type Severity Reaction Status Date / Time No Known Drug Allergies Allergy Verified 02/16/23 11:56 - Social History Does the pt smoke?: No Smoking Status: Never smoker Does the pt drink ETOH?: No Does the pt have substance abuse?: No - Immunizations Immunizations are current?: Yes - POLST Patient has POLST: No PD ED PE EXPANDED - General General: Alert, No acute distress - Respiratory Respiratory: Decreased breath sounds (Markedly diminished breath sounds on the left lung.), Other (No respiratory distress. Room air saturations 98%.) - Abdomen Abdomen: Normal Bowel sounds. No: Tender to palpation (Mild tenderness with palpation of the left lower quadrant of the abdomen. No guarding or rebound.) - Rectal Rectal: Clinical Nurse present, Other (Moderate amount of soft stool felt within the vault. Easily removed about a baseball sized amount of stool.) Results - Vitals Vitals: Vital Signs - 24 hr 02/16/23 02/16/23 11:51 13:54 Temperature 36.3 C L Heart Rate 65 62 Respiratory 16 100 H Rate Blood Pressure 144/62 H 150/60 H O2 Saturation 98 Oxygen O2 Source Room air PD Medical Decision Making - ED course Complexity details: re-evaluated patient, d/w patient, d/w family ED course: 87-year-old male who has a history of end-stage renal disease as well as chronic indwelling suprapubic catheter presents to the emergency department for evaluation of failure to have bowel movement for the last 5 days despite using prune juice MiraLAX and stool softeners at home. The family would like to respect the wishes of a hospice patient had not pursue advanced imaging or testing. They simply want help getting this patient have a bowel movement as he finds the constipation uncomfortable. Initially I did a digital rectal exam and I was able to remove about a baseball sized amount of stool from the rectum. This was then followed by fleets enema. Nursing staff reported that due to the dementia he did not retain much of the enema and on reevaluation there was too little volume of stool in the vault to be removed. The residual volume is felt to be much higher in the colon than can be safely disimpacted as the bedside. This enema will be repeated 1 more time and then reevaluated. Once discharged he can continue to use the MiraLAX and follow the recommendations of hospice Departure - Departure Disposition: 01 Home, Self Care Clinical Impression: Constipation Qualifiers: Constipation type: other constipation type Qualified Code(s): K59.09 - Other constipation Comments: Farhad was seen today in the emergency department because for the last several days he has had constipation. You have been given him prune juice and MiraLAX daily. We did do some disimpaction at the bedside and I am no longer able to have a large volume of stool in the vault to remove. I do recommend that you do begin giving him the MiraLAX twice daily. You can follow closely with hospice To see if they have any recommendations to help with the constipation though given that I removed a large volume of stool from his rectal vault I suspect he may be feeling a little better and will start to have a bowel movement over the next day or so.
[2023-02-16] MEDS: MINERAL OIL ENEMA 133 ML BOTTLE RC STA ×2 (12:55→13:48)
[2023-02-16 14:28] VITALS: BP 157/81
== END 2023-02-16 14:28 | disposition home or self-care (01) ==
LOC: ED 11:46
DX: K59.00 Constipation, unspecified (principal); F03.90 Unspecified dementia, unspecified severity, without behavioral disturbance, psychotic disturbance, mood disturbance, and anxiety; N18.6 End stage renal disease; Z96.0 Presence of urogenital implants
CPT/HCPCS: 99282; 99283; A9270